=== PATIENT | female | born 1930 | race Caucasian/White ===

== ENCOUNTER 2017-02-11 14:14 | Day surgery (SDC) | payer MEDICARE, OTHER ==
[~2017-02-11 14:14] MED LIST: APRACLONIDINE HCL 50 DROP BTL RIGHTEYE PRN; PHENYLEPHRINE HCL 50 DROP BTL RIGHTEYE PRN; TROPICAMIDE 150 DROP BTL RIGHTEYE PRN
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
--- OUTSIDE RECORDS SUMMARY | 2017-02-11 14:18 | XMS REPORT | CCD ---
:1930 Author Name GARCÍA MANE Address [address] [facility] Unavailable [place], [place] [id number] Care Team Providers Name Role Phone LORELEI CROWDER Attending Physician Unavailable Vital Signs Unknown or Not Available. Allergies Allergy Code Allergy Type Reaction Status No Known Drug Allergies 0 No known drug allergies Active Procedures Unknown or Not Available. History of Immunizations Unknown or Not Available. Problems Unknown or Not Available. Results Unknown or Not Available. Active Medications Unknown or Not Available. Medications Administered During Visit Unknown or Not Available. Encounters Encounter Diagnosis Diagnosis Code Start Date CHEST PAIN NOS 95493 07/19/2015 Social History Smoking Status Code Start Date End Date Never smoker [id number] Patient Decision Aids Unknown or Not Available. Discharge Instructions You were admitted to [facility] on 07/19/2015 with a principal diagnosis of CHEST PAIN NOS. You were discharged from [facility] on 07/19/2015. Should you have any questions prior to discharge, please contact a member of your healthcare team. If you have left the hospital and have any questions, please contact your primary care physician. Chief Complaint and Reason For Visit Unknown or Not Available. Function Status Unknown or Not Available. Plan of Care Unknown or Not Available. Referral/Transition of Care Unknown or Not Available.
[2017-02-11 14:49] VITALS: BP 143/74
== END 2017-02-11 14:15 | disposition home or self-care (01) ==
LOC: AMB 14:14
PROVIDERS: ATTEND Ophthalmology
PROC: 085J3ZZ Destruction of Right Lens, Percutaneous Approach (ICD-10-PCS; principal; 2017-02-11 14:30)
DX: H26.40 Unspecified secondary cataract (principal); Z68.29 Body mass index [BMI] 29.0-29.9, adult

== ENCOUNTER 2017-04-08 12:29 | Day surgery (SDC) | payer MEDICARE, OTHER ==
[2017-04-08 12:50] VITALS: BP 148/68
== END 2017-04-08 12:30 | disposition home or self-care (01) ==
LOC: AMB 12:29
PROVIDERS: ATTEND Ophthalmology
PROC: 085J3ZZ Destruction of Right Lens, Percutaneous Approach (ICD-10-PCS; principal; 2017-04-08 11:45)
DX: H26.491 Other secondary cataract, right eye (principal); I10 Essential (primary) hypertension; E78.00 Pure hypercholesterolemia, unspecified; Z68.29 Body mass index [BMI] 29.0-29.9, adult

== ENCOUNTER 2019-05-23 09:21 | Inpatient (IN) ==
[2019-05-23] MEDS ORDERED: DILTIAZEM HCL 5 MG/ML VIAL IV ONE (09:46)
[2019-05-23] MEDS ORDERED: NORMAL SALINE 500 ML IV PRN (09:56)
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
[2019-05-23 10:08] LABS: Hematocrit 38.3 % (37.0-47.0); Hemoglobin 12.5 gm/dL (12.5-16.0); Mean Cell Volume 94.3 fl (78-100); Mean Corpuscular Hemoglobin 30.8 pg (27-31); Mean Corpuscular Hgb Conc 32.6 g/dl (32-36); Mean Platelet Volume 10.8 fl (8-12.5); Neutrophil # 12.1 K/mm3 (1.3-6.0); Neutrophil % 84.3 % (42-75.0); Platelet Count 275 K/mm3 (150-450); Red Blood Count 4.06 M/mm3 (4.2-5.4); Red Cell Distribution Width 13.4 % (11.5-14.0); White Blood Count 14.3 K/mm3 (4.0-10.5)
[2019-05-23 10:22] LABS: Urine Appearance Clear (CLEAR); Urine Bilirubin Negative (NEGATIVE); Urine Blood 250 /ul (NEGATIVE); Urine Color Yellow; Urine Ketone Large mg/dL (NEGATIVE); Urine Nitrite Negative (NEGATIVE); Urine Protein 100 mg/dL (NEGATIVE); Urine Urobilinogen Normal (NORMAL)
[2019-05-23 10:23] LABS: Urine Bacteria None Seen; Urine RBC 0-5 /hpf (0-5); Urine WBC 0-5 /hpf (0-5)
[2019-05-23 10:31] LABS: Albumin * 3.5 gm/dl (3.4-5.0); BUN/Creatinine Ratio 36.1 (9.0-21.6); Bilirubin, Total 0.7 mg/dL (0.0-1.1); Ca. Corrected For Albumin 10.1 mg/dL (8.4-10.2); Carbon Dioxide 21.1 mmol/L (24-32.6); Potassium 4.1 mmol/L (3.4-4.6); Total Protein 7.1 gm/dL (6.2-8.2)
[2019-05-23 10:32] LABS: Troponin I 0.216 ng/mL (0.00-0.10)
[2019-05-23] MEDS: NORMAL SALINE 1,000 ML IV PRN ×2 (10:32→16:59)
[2019-05-23] MEDS ORDERED: DILTIAZEM HCL 125 MG in DEXTROSE 5 % IN WATER 100 ML IV PRN ×2 (11:10)
[2019-05-23] MEDS ORDERED: NORMAL SALINE 1,000 ML IV ONE (11:10)
--- NOTE | 2019-05-23 14:17 | HP ---
Chief Complaint - Chief Complaint Date of Service: 05/23/19 Time of Service: 14:03 Chief Complaint: fall History of Present Illness: Viry Ramirez is an 88-year-old white female patient of Dr. Gato chapa who was admitted on 05/23/2019 because of a fall. The patient was found by her son on the floor this morning in the last time they talked to her was last night. 10 days prior to admission the patient had fallen down and broke her ribs and was seen in our emergency room. She had seen her neurologist who had told her that her Parkinson's disease has progressively gotten worse. In the emergency room the patient was found to be in atrial fibrillation with rapid ventricular response. Her troponin was slightly elevated at 0.2 and her CK was in the 4874, WBC of 16. Her chest x-ray showed mild cardiomegaly, her head CT scan showed no acute intracranial process, and her pelvic and hip x-ray showed osteopenia and degenerative changes no acute fractures. The family also says that her dementia is been getting worse lately. She was then admitted for further evaluation and treatment. Medical History (Updated 05/23/19 @ 14:27 by Betty Nicole MD) Urinary incontinence (Chronic) Onset Date: ~06/2008 Transient ischemic attack (Resolved) Onset Date: ~2004 Supraventricular tachycardia (Chronic) Onset Date: ~10/11/07 Rotator cuff injury (Resolved) Onset Date: ~03/03/13 Right small rotator cuff tear Osteoporosis (Chronic) Onset Date: ~2000 Lower extremity edema (Chronic) Onset Date: ~08/17/13 Probably due to inactivity and increased salt intake Trigger finger (acquired) (Resolved) Onset Date: ~12/12/12 Left small finger Hypertension (Chronic) Hyperlipidemia (Chronic) Trochanteric bursitis, unspecified hip (Resolved) Onset Date: ~11/05/12 left 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 Garcia-bilateral Anterior and Posterior Repair History of YAG laser capsulotomy of lens Onset Date: ~06/26/06 Dr. Mancini-Left History of adenoidectomy Onset Date: Unknown as child History of appendectomy Onset Date: ~1944 History of arthroscopy of right knee Onset Date: ~01/24/12 Dr. Ortiz History of cardiac catheterization Onset Date: ~06/18/13 Kathleen History of carpal tunnel release Onset Date: Unknown 07/04/07 Dr. Rhoades 12/18/2012 left carpal tunnel release and left small finger trigger finger Dr. Ortiz History of cataract surgery Onset Date: ~2002 right 10/05/2003 left 12/28/2003 History of section Onset Date: ~1961 History of cystoscopy Onset Date: ~02/07/11 Dr. Garcia History of esophagogastroduodenoscopy (EGD) Onset Date: ~05/26/13 Dr. Maria Fernanda Fox positive. Mod chronic gastric inflammation History of foot surgery Onset Date: ~02/02/16 1979-Right for spurs 02/02/16-B/L exostectomy by Dr. Dinh at [facility] History of pubovaginal sling Onset Date: ~02/07/13 Dr. Garcia History of repair of hip fracture Onset Date: ~07/24/13 left-Stindler History of tonsillectomy Onset Date: Unknown as child History of total abdominal hysterectomy and bilateral salpingo-oophorectomy Onset Date: ~1975 Fibroids Family History: Family History (Updated 07/11/18 @ 11:17 by Reny Lugo CMA) Father , age 67 Myocardial infarction CVA (cerebral vascular accident) Status post removal of lung Nervous breakdown Mother , age 86 Alzheimers disease Brother , age 75 Cancer Lung CA Kidney failure Brother Alcoholic Social History: (Last Reviewed 05/23/19 @ 13:40 by Dolly Perdomo RN) Social History: jail: No Marital status: / household members: none number of children: 2 current occupational status: retired Highest education level completed: high school graduate Service: No Tobacco: Smoking Status: Never smoker Alcohol: alcohol intake: current alcohol intake frequency: holiday/special occasion Substance Use: substance use type: does not use Dietary Habits: caffeine: Yes Review Of Systems (GEN) - Review of Systems Misc: All systems neg except as marked - unreliable due to Dementia Immunizations: IMMUNIZATION HX Immunizations Up to Date Yes History of Influenza Vaccine Yes Hx Pneumococcal Vaccination Yes Allergies/Adverse Reactions: Allergies Allergy/AdvReac Type Severity Reaction Status Date / Time No Known Allergies Allergy Verified 05/23/19 09:29 Home Medications: HOME MEDICATIONS Multivitamins [Multivitamin Sukumar] 1 cap PO DAILY #90 cap 06/10/13 [Last Taken Unknown] Acetaminophen [Tylenol] 325 - 650 mg PO Q4H PRN 06/15/13 [Last Taken Unknown] Ascorbate Calcium [Vitamin C] 500 mg PO DAILY 01/11/16 [Last Taken Unknown] Bisacodyl [Dulcolax] 5 mg PO DAILY 01/11/16 [Last Taken Unknown] Calcium Carbonate/Vitamin D3 [Calcium 500 + Vit D 200 Tablet] 1 ea PO DAILY 01/11/16 [Last Taken Unknown] Ferrous Sulfate [Iron] 325 mg PO BID 01/11/16 [Last Taken Unknown] Nitroglycerin 0.4 mg SL Q5M PRN 01/11/16 [Last Taken Unknown] meloxicam 15 mg tablet 15 mg PO DAILY 07/11/18 [Last Taken Unknown] oxybutynin chloride 5 mg tablet 5 mg PO HS #30 tab 01/05/19 [Last Taken Unknown] enalapril maleate 10 mg tablet 10 mg PO BID #60 tab 01/06/19 [Last Taken Unknown] metoprolol tartrate 100 mg tablet 100 mg PO DAILY #30 tab 01/06/19 [Last Taken Unknown] simvastatin 40 mg tablet 40 mg PO DAILY #30 tab 01/06/19 [Last Taken Unknown] oxyCODONE HCL/ACETAMINOPHEN [Oxycodone-Acetaminophen 5-325] 1 ea PO QID PRN #20 tab 05/13/19 [Last Taken Unknown] Exam - Exam Vital Signs: Vital Signs - Last Taken Temp 36.7 C 05/23/19 13:43 Pulse 133 H 05/23/19 14:02 Resp 20 05/23/19 13:43 BP 128/87 05/23/19 13:43 Pulse Ox 98 05/23/19 13:43 Constitutional: Present: Alert - AAo x 2, Cooperative, Elderly ENT Exam: Present: hearing grossly normal Eye Exam: bilateral eye: normal inspection, PERRL, EOMI Neck: Present: supple. Absent: lymphadenopathy (R), lymphadenopathy (L) Respiratory: Present: normal breath sounds, No rales, No wheezing Cardiovascular/Chest: Present: no JVD, tachycardia, irregularly irregular Abdomen: Present: Normal bowel sounds, soft, nontender, nondistended Extremity: Present: no pedal edema, no calf tenderness Diagnostic Studies: Abnormal Lab Results 05/23/19 05/23/19 05/23/19 Range/Units 09:52 10:00 10:00 WBC 14.3 H (4.0-10.5) K/mm3 RBC 4.06 L (4.2-5.4) M/mm3 Immature Gran % (Auto) 0.60 H (0.001-0.429) % Immature Gran # (Auto) 0.08 H (0.000-0.0310) K/mm3 Neutrophils % 84.3 H (42-75.0) % Lymphocytes % 5.0 L (20-51) % Monocytes % 9.9 H (0.0-9) % Neutrophils # 12.1 H (1.3-6.0) K/mm3 Lymphocytes # 0.71 L (1.5-3.5) k/mm3 Monocytes # 1.4 H (0.0-1.0) k/mm3 Carbon Dioxide 21.1 L (24-32.6) mmol/L Anion Gap 20.0 H (6.8-13.8) mmol/L BUN 43 H (3-23) mg/dL Est GFR (Non-Af Amer) 45 L (60-130) mL/min BUN/Creatinine Ratio 36.1 H (9.0-21.6) Random Glucose 126 H (70-110) mg/dL AST 190 H (0-48) U/L ALT 84 H (19-67) U/L Creatine Kinase 4874 H (0-259) U/L Troponin I 0.216 H* (0.00-0.10) ng/mL Urine Protein 100 H (NEGATIVE) mg/dL Urine Blood 250 H (NEGATIVE) /ul Prot Sulfosalicylic Acd 3+ H (0) mg/dL Laboratory Results WBC 14.3 K/mm3 (4.0-10.5) H 05/23/19 10:00 RBC 4.06 M/mm3 (4.2-5.4) L 05/23/19 10:00 Hgb 12.5 gm/dL (12.5-16.0) 05/23/19 10:00 Hct 38.3 % (37.0-47.0) 05/23/19 10:00 MCV 94.3 fl (78-100) 05/23/19 10:00 MCH 30.8 pg (27-31) 05/23/19 10:00 MCHC 32.6 g/dl (32-36) 05/23/19 10:00 RDW 13.4 % (11.5-14.0) 05/23/19 10:00 Plt Count 275 K/mm3 (150-450) 05/23/19 10:00 MPV 10.8 fl (8-12.5) 05/23/19 10:00 Immature Gran % (Auto) 0.60 % (0.001-0.429) H 05/23/19 10:00 Immature Gran # (Auto) 0.08 K/mm3 (0.000-0.0310) H 05/23/19 10:00 84.3 % (42-75.0) H 05/23/19 10:00 5.0 % (20-51) L 05/23/19 10:00 9.9 % (0.0-9) H 05/23/19 10:00 0.1 % (0.0-3.0) 05/23/19 10:00 0.1 % (0.0-1.0) 05/23/19 10:00 Nucleated RBC % 0.0 k/mm3 (0-1) 05/23/19 10:00 12.1 K/mm3 (1.3-6.0) H 05/23/19 10:00 0.71 k/mm3 (1.5-3.5) L 05/23/19 10:00 1.4 k/mm3 (0.0-1.0) H 05/23/19 10:00 0.0 k/mm3 (0.0-0.7) 05/23/19 10:00 Absolute Basophils 0.0 k/mm3 (0.0-0.1) 05/23/19 10:00 Sodium 140 mmol/L (132-142) 05/23/19 10:00 140 mmol/L (130-142) 05/23/19 10:00 Potassium 4.1 mmol/L (3.4-4.6) 05/23/19 10:00 Chloride 103 mmol/L (97-106) 05/23/19 10:00 Carbon Dioxide 21.1 mmol/L (24-32.6) L 05/23/19 10:00 20.0 mmol/L (6.8-13.8) H 05/23/19 10:00 BUN 43 mg/dL (3-23) H 05/23/19 10:00 1.19 mg/dL (0.4-1.4) 05/23/19 10:00 Est GFR (Non-Af Amer) 45 mL/min (60-130) L 05/23/19 10:00 36.1 (9.0-21.6) H 05/23/19 10:00 126 mg/dL (70-110) H 05/23/19 10:00 Calcium 10.0 mg/dL (7.9-10.9) 05/23/19 10:00 Calcium Adj for Albumin 10.1 mg/dL (8.4-10.2) 05/23/19 10:00 0.7 mg/dL (0.0-1.1) 05/23/19 10:00 AST 190 U/L (0-48) H 05/23/19 10:00 ALT 84 U/L (19-67) H 05/23/19 10:00 77 U/L (50-170) 05/23/19 10:00 4874 U/L (0-259) H 05/23/19 10:00 0.216 ng/mL (0.00-0.10) H* 05/23/19 10:00 7.1 gm/dL (6.2-8.2) 05/23/19 10:00 3.5 gm/dl (3.4-5.0) 05/23/19 10:00 Yellow 05/23/19 09:52 Clear (CLEAR) 05/23/19 09:52 6.0 pH (5.0-7.0) 05/23/19 09:52 Ur Specific [place] 1.030 SP.GR. (1.005-1.010) 05/23/19 09:52 100 mg/dL (NEGATIVE) H 05/23/19 09:52 Negative mg/dL (NEGATIVE) 05/23/19 09:52 Large mg/dL (NEGATIVE) 05/23/19 09:52 250 /ul (NEGATIVE) H 05/23/19 09:52 Negative (NEGATIVE) 05/23/19 09:52 Negative mg/dl (NEGATIVE) 05/23/19 09:52 Prot Sulfosalicylic Acd 3+ mg/dL (0) H 05/23/19 09:52 Normal EU/dl (NORMAL) 05/23/19 09:52 Ur Leukocyte Esterase Negative /ul (NEGATIVE) 05/23/19 09:52 0-5 /hpf (0-5) 05/23/19 09:52 0-5 /hpf (0-5) 05/23/19 09:52 Ur Epithelial Cells 0-5 /hpf (0-5) 05/23/19 09:52 None seen (NONE) 05/23/19 09:52 No culture indicated 05/23/19 09:52 Assessment/Plan - Narrative Narrative: The patient got 50 mg of IV bolus Cardizem. The drip was not started as her blood pressure was in the low 90s after the bolus. We will likely start her on loading dose of IV digoxin if her BP is still n the low side otherwise will starte her on Cardizem drip. . Discussion about recent control and rate control were done with the family. They just want rate control and they do not want anticoagulation. She is at an increased risk for bleeding from frequent falls. The grandson is in the medical field and just wants to continue with her aspirin and no therapeutic Lovenox. I did tell him that I will start him on DVT p rophylaxis dose of Lovenox. We will continue patient on on IV fluids for her rhabdomyolysis. Will refer to PT OT for evaluation and treatment. They do not want the patient to be transferred in case her troponin goes up any higher. They just want conservative measures. - Assessment/Plan (1) Multiple falls Assessment: due to progression of Parkinson disease Problem: Acute (2) Atrial fibrillation Assessment: new onset. had h/p SVT in the past Problem: Acute (3) Elevated troponin Assessment: likely due to increase demand ischemia from AFib with RVR Problem: Acute (4) Rib fractures Problem: Acute Qualifiers: Encounter type: initial encounter Rib fracture type: multiple ribs Fracture type: closed Laterality: left Qualified Code(s): S22.42XA - Multiple fractures of ribs, left side, initial encounter for closed fracture (5) Elevated CK Assessment: due to fall/rhabdo Problem: Acute (6) Rhabdomyolysis Assessment: due to fall Problem: Acute (7) Hypertension Problem: Chronic Qualifiers: Hypertension type: essential hypertension Qualified Code(s): I10 - Essential (primary) hypertension
[2019-05-23] MEDS ORDERED: NITROGLYCERIN 0.4 MG/TAB BTL SL PRN (14:30)
[2019-05-23] MEDS ORDERED: DIGOXIN 0.25 MG/ML AMPUL IV ONE (15:09)
[2019-05-23] MEDS: ASPIRIN 81 MG TAB.CHEW PO SCH ×2 (15:43→15:46)
[2019-05-23] MEDS: ENOXAPARIN SODIUM 40 MG/0.4 ML SYRG SC SCH (17:35)
[2019-05-23] MEDS: DIGOXIN 0.25 MG/ML AMPUL IV SCH (22:01)
[2019-05-23] MEDS: OXYBUTYNIN CHLORIDE 5 MG TABLET PO SCH (22:06)
[2019-05-23] MEDS: FERROUS SULFATE 325 MG TABLET PO SCH (22:06)
[2019-05-23] MEDS ORDERED: METOPROLOL TARTRATE 1 MG/ML AMPUL IV ONE (22:17)
[2019-05-24] MEDS: NYSTATIN 15 APPL BTL TP SCH ×3 (00:17→23:43)
[2019-05-24] MEDS: NORMAL SALINE 1,000 ML IV PRN ×3 (01:08→18:32)
[2019-05-24] MEDS: DIGOXIN 0.25 MG/ML AMPUL IV SCH ×3 (02:28→14:01)
[2019-05-24 06:15] LABS: Hematocrit 31.2 % (37.0-47.0); Hemoglobin 10.2 gm/dL (12.5-16.0); Mean Cell Volume 95.1 fl (78-100); Mean Corpuscular Hemoglobin 31.1 pg (27-31); Mean Corpuscular Hgb Conc 32.7 g/dl (32-36); Mean Platelet Volume 11.1 fl (8-12.5); Neutrophil # 7.4 K/mm3 (1.3-6.0); Neutrophil % 75.6 % (42-75.0); Platelet Count 234 K/mm3 (150-450); Red Blood Count 3.28 M/mm3 (4.2-5.4); Red Cell Distribution Width 13.5 % (11.5-14.0); White Blood Count 9.8 K/mm3 (4.0-10.5)
[2019-05-24 06:47] LABS: Anion Gap 16.1 mmol/L (6.8-13.8); BUN/Creatinine Ratio 38.3 (9.0-21.6); Calcium * 8.7 mg/dL (7.9-10.9); Carbon Dioxide 21.4 mmol/L (24-32.6); Estimated Creat Clear 32.7; Potassium 3.5 mmol/L (3.4-4.6)
[2019-05-24] MEDS: ASPIRIN 81 MG TAB.CHEW PO SCH (09:14)
[2019-05-24] MEDS: SIMVASTATIN 40 MG TABLET PO SCH (09:14)
[2019-05-24] MEDS: MULTIVITAMINS 1 CAP CAPSULE PO SCH (09:15)
[2019-05-24] MEDS: CALCIUM CARBONATE/VITAMIN D3 1 TAB TABLET PO SCH (09:16)
[2019-05-24] MEDS: FERROUS SULFATE 325 MG TABLET PO SCH ×2 (09:17→23:43)
[2019-05-24] MEDS: ASCORBIC ACID 500 MG TABLET PO SCH (09:17)
[2019-05-24] MEDS: BISACODYL 5 MG TABLET.DR PO SCH (09:18)
[2019-05-24] MEDS: oxyCODONE HCL/ACETAMINOPHEN 1 TAB TABLET PO PRN (11:05)
--- NOTE | 2019-05-24 11:19 | PN ---
Subjective - Date and Time Seen Date: 05/24/19 Time: 11:11 Subjective Narrative: The patient is feeling better. Her heart rate has been controlled in the 70s to 80s and her blood pressure is back up into the 130s. We will get an echocardiogram in the morning and add TSH/CK to her blood work this morning. Objective - Review of Systems Misc: All systems neg except as marked - Unreliable due to patient's baseline beginning dementia. - Vitals Vitals: Last Vital Signs Temp 36.8 C 05/24/19 10:00 Pulse 89 05/24/19 10:00 Resp 20 05/24/19 10:00 BP 149/64 05/24/19 10:00 Pulse Ox 96 05/24/19 10:00 - Abnormal Lab Findings Abnormal Lab Findings: Abnormal Lab Results 05/23/19 05/24/19 05/24/19 Range/Units 14:00 06:12 06:12 RBC 3.28 L (4.2-5.4) M/mm3 Hgb 10.2 L (12.5-16.0) gm/dL Hct 31.2 L (37.0-47.0) % MCH 31.1 H (27-31) pg Neutrophils % 75.6 H (42-75.0) % Lymphocytes % 12.1 L (20-51) % Monocytes % 11.8 H (0.0-9) % Neutrophils # 7.4 H (1.3-6.0) K/mm3 Lymphocytes # 1.19 L (1.5-3.5) k/mm3 Monocytes # 1.2 H (0.0-1.0) k/mm3 Sodium 144 H (132-142) mmol/L Plasma Sodium 144 H (130-142) mmol/L Chloride 110 H (97-106) mmol/L Carbon Dioxide 21.4 L (24-32.6) mmol/L Anion Gap 16.1 H (6.8-13.8) mmol/L BUN 36 H (3-23) mg/dL BUN/Creatinine Ratio 38.3 H (9.0-21.6) Troponin I 0.228 H* (0.00-0.10) ng/mL - Exam Constitutional: Present: Alert - AAO x2, Cooperative, Elderly ENT Exam: Present: hearing grossly normal Neck: Present: supple. Absent: lymphadenopathy (R), lymphadenopathy (L) Respiratory: Present: normal breath sounds, No rales Cardiovascular/Chest: Present: no JVD, systolic murmur, irregularly irregular Abdomen: Present: Normal bowel sounds, soft, nontender, nondistended Extremity: Present: no pedal edema, no calf tenderness Assessment/Plan Plan Narrative: We will continue with the present management. Will likely restart her back on metoprolol tartrate twice a day for rate control. If patient needs digoxin will likely give it to her on on MWF basis. We will get an echocardiogram in the morning for A. fib and will add TSH and do a follow-up CK from her blood drawn this morning. - Problems/Diagnosis (1) Multiple falls Problem: Acute (2) Atrial fibrillation Problem: Acute Narrative: rate controlled. not on anticoagulation per discussion with family-dementia with increase fallrisks form her Parkinson. she is going to recieve her last dose of IV loadng digoxin dose at 1330. Will likely start her on Metorpolol tartrate BID tonight or tomorrow. (3) Elevated troponin Problem: Acute Narrative: likely due increased demand iscehmia. will get Echo in a.m. (4) Rib fractures Problem: Acute Qualifiers: Encounter type: initial encounter Rib fracture type: multiple ribs Fracture type: closed Laterality: left Qualified Code(s): S22.42XA - Multiple fractures of ribs, left side, initial encounter for closed fracture (5) Elevated CK Problem: Acute Narrative: will follow up CK (6) Rhabdomyolysis Problem: Acute Narrative: will follow up CK. ADDENDUM CK is down to 1500+ from 4500+. continue with IVF. (7) Hypertension Problem: Chronic Qualifiers: Hypertension type: essential hypertension Qualified Code(s): I10 - Essential (primary) hypertension
[2019-05-24] MEDS: ENOXAPARIN SODIUM 40 MG/0.4 ML SYRG SC SCH (18:28)
[2019-05-24] MEDS: OXYBUTYNIN CHLORIDE 5 MG TABLET PO SCH (23:43)
[2019-05-25] MEDS: NORMAL SALINE 1,000 ML IV PRN ×2 (02:44→17:59)
[2019-05-25] MEDS: ASCORBIC ACID 500 MG TABLET PO SCH (08:53)
[2019-05-25] MEDS: FERROUS SULFATE 325 MG TABLET PO SCH ×2 (08:53→21:55)
[2019-05-25] MEDS: BISACODYL 5 MG TABLET.DR PO SCH (08:53)
[2019-05-25] MEDS: ASPIRIN 81 MG TAB.CHEW PO SCH (08:53)
[2019-05-25] MEDS: CALCIUM CARBONATE/VITAMIN D3 1 TAB TABLET PO SCH (08:53)
[2019-05-25 08:54] LABS: Anion Gap 12.2 mmol/L (6.8-13.8); BUN/Creatinine Ratio 28.1 (9.0-21.6); Calcium * 8.5 mg/dL (7.9-10.9); Estimated Creat Clear 34.6; Potassium 3.2 mmol/L (3.4-4.6)
[2019-05-25] MEDS: MULTIVITAMINS 1 CAP CAPSULE PO SCH (08:54)
[2019-05-25] MEDS: SIMVASTATIN 40 MG TABLET PO SCH (08:54)
[2019-05-25] MEDS: METOPROLOL TARTRATE 50 MG TABLET PO SCH ×2 (08:54→21:55)
[2019-05-25] MEDS: NYSTATIN 15 APPL BTL TP SCH ×2 (08:54→21:55)
[2019-05-25] MEDS ORDERED: POTASSIUM CHLORIDE 10 MEQ TABLET.SA PO ONE (09:59)
--- NOTE | 2019-05-25 10:42 | PN ---
Progess Note - Interim Date: 05/25/19 Time: 10:40 Narrative: 05/25/19 10:40 Remains rate controlled. Will await Echo. may need NH due to her increased fall risk.
--- NOTE | 2019-05-25 12:19 | PN ---
Subjective - Date and Time Seen Date: 05/25/19 Time: 12:14 Subjective Narrative: Patient seen this morning. She says she is feeling better. Her HR has been controlled . Objective - Review of Systems Misc: All systems neg except as marked - unreliable due to mental status - Vitals Vitals: Last Vital Signs Temp 36.5 C 05/25/19 09:00 Pulse 67 05/25/19 10:10 Resp 20 05/25/19 09:00 BP 153/84 H 05/25/19 09:00 Pulse Ox 95 05/25/19 09:00 - Abnormal Lab Findings Abnormal Lab Findings: Abnormal Lab Results 05/25/19 Range/Units 08:16 Potassium 3.2 L (3.4-4.6) mmol/L BUN 25 H (3-23) mg/dL BUN/Creatinine Ratio 28.1 H (9.0-21.6) Random Glucose 128 H D (70-110) mg/dL Creatine Kinase 850 H (0-259) U/L - Exam Constitutional: Present: Alert - AAO x 1, Elderly ENT Exam: Present: hearing grossly normal Neck: Present: supple. Absent: lymphadenopathy (R), lymphadenopathy (L) Respiratory: Present: decreased breath sounds, No rales, No wheezing Cardiovascular/Chest: Present: no JVD, systolic murmur, irregularly irregular Abdomen: Present: Normal bowel sounds, soft, nontender, nondistended Extremity: Present: no calf tenderness, pedal edema Assessment/Plan Plan Narrative: We will start her on metoprolol tartate 50 mg PO BID for rate control. will defer from starting her on oral digoxin if this works. will defer also amiodarone as they just want rate control. she is for Echo today. she will need NH or assisted living due to her frequent falls. Her Ck is sill trending down. - Problems/Diagnosis (1) Multiple falls Problem: Acute (2) Atrial fibrillation Problem: Acute (3) Elevated troponin Problem: Acute (4) Rib fractures Problem: Acute Qualifiers: Encounter type: initial encounter Rib fracture type: multiple ribs Fracture type: closed Laterality: left Qualified Code(s): S22.42XA - Multiple fractures of ribs, left side, initial encounter for closed fracture (5) Elevated CK Problem: Acute (6) Rhabdomyolysis Problem: Acute (7) Hypertension Problem: Chronic Qualifiers: Hypertension type: essential hypertension Qualified Code(s): I10 - Essential (primary) hypertension
[2019-05-25] MEDS: ENOXAPARIN SODIUM 40 MG/0.4 ML SYRG SC SCH (17:12)
[2019-05-25] MEDS: OXYBUTYNIN CHLORIDE 5 MG TABLET PO SCH (21:55)
[2019-05-25] MEDS: ACETAMINOPHEN 325 MG TABLET PO PRN (21:55)
[2019-05-26 05:43] LABS: Hemoglobin 9.9 gm/dL (12.5-16.0); Mean Cell Volume 96.3 fl (78-100); Mean Corpuscular Hemoglobin 30.7 pg (27-31); Mean Corpuscular Hgb Conc 31.9 g/dl (32-36); Mean Platelet Volume 10.5 fl (8-12.5); Neutrophil % 63.1 % (42-75.0); Platelet Count 212 K/mm3 (150-450); Red Blood Count 3.22 M/mm3 (4.2-5.4); Red Cell Distribution Width 13.4 % (11.5-14.0); White Blood Count 7.9 K/mm3 (4.0-10.5)
[2019-05-26 05:56] LABS: Albumin * 2.2 gm/dl (3.4-5.0); Anion Gap 13.3 mmol/L (6.8-13.8); BUN/Creatinine Ratio 32.9 (9.0-21.6); Bilirubin, Total 0.4 mg/dL (0.0-1.1); Ca. Corrected For Albumin 9.6 mg/dL (8.4-10.2); Calcium * 8.5 mg/dL (7.9-10.9); Carbon Dioxide 24.3 mmol/L (24-32.6); Potassium 3.6 mmol/L (3.4-4.6); Total Protein 5.3 gm/dL (6.2-8.2)
[2019-05-26] MEDS: ACETAMINOPHEN 325 MG TABLET PO PRN ×2 (07:43→20:17)
--- NOTE | 2019-05-26 08:18 | PN ---
Progess Note - Interim Date: 05/26/19 Time: 08:16 Narrative: 05/26/19 08:16 Patient is AAo x 1. Cooperative this morning and pleasant. Had some behavioral changes last night not being cooperative, refusing VS. possible disharge to NH today, dementia unit. will discuss rsult of Echo with family.
[2019-05-26] MEDS: ASPIRIN 81 MG TAB.CHEW PO SCH (08:51)
[2019-05-26] MEDS: CALCIUM CARBONATE/VITAMIN D3 1 TAB TABLET PO SCH (08:51)
[2019-05-26] MEDS: BISACODYL 5 MG TABLET.DR PO SCH (08:51)
[2019-05-26] MEDS: FERROUS SULFATE 325 MG TABLET PO SCH ×2 (08:52→20:17)
[2019-05-26] MEDS: MULTIVITAMINS 1 CAP CAPSULE PO SCH (08:52)
[2019-05-26] MEDS: METOPROLOL TARTRATE 50 MG TABLET PO SCH ×2 (08:52→20:18)
[2019-05-26] MEDS: SIMVASTATIN 40 MG TABLET PO SCH (08:52)
[2019-05-26] MEDS: NYSTATIN 15 APPL BTL TP SCH ×2 (08:52→20:19)
[2019-05-26] MEDS: ASCORBIC ACID 500 MG TABLET PO SCH (08:52)
--- NOTE | 2019-05-26 12:00 | ECHO ---
This report is available in the EMR
--- NOTE | 2019-05-26 15:01 | PN ---
Subjective - Date and Time Seen Date: 05/26/19 Time: 15:01 Subjective Narrative: Patient is AAo x 1. Cooperative this morning and pleasant. Had some behavioral changes last night not being cooperative, refusing VS. possible disharge to [place] , dementia unit. Discussed result of Echo with family- slightly D shaped septum but RVSP is only 35. P.E. is equivocal . discussed if they want CTA. if with P.E. treatment is oral anticogulant. Daughter says she will discuss with her son who is in the medical field. Objective - Review of Systems Misc: All systems neg except as marked - unrelaibale due to confusion - Vitals Vitals: Last Vital Signs Temp 36.9 C 05/26/19 10:00 Pulse 63 05/26/19 14:25 Resp 20 05/26/19 10:00 BP 124/64 05/26/19 10:00 Pulse Ox 98 05/26/19 10:00 - Abnormal Lab Findings Abnormal Lab Findings: Abnormal Lab Results 05/26/19 05/26/19 05/26/19 Range/Units 05:37 05:37 05:37 RBC 3.22 L (4.2-5.4) M/mm3 Hgb 9.9 L (12.5-16.0) gm/dL Hct 31.0 L (37.0-47.0) % MCHC 31.9 L (32-36) g/dl Immature Gran % (Auto) 0.80 H (0.001-0.429) % Immature Gran # (Auto) 0.06 H (0.000-0.0310) K/mm3 Monocytes % 11.3 H (0.0-9) % Chloride 108 H (97-106) mmol/L BUN 28 H (3-23) mg/dL BUN/Creatinine Ratio 32.9 H (9.0-21.6) Creatine Kinase 434 H (0-259) U/L Total Protein 5.3 L (6.2-8.2) gm/dL Albumin 2.2 L (3.4-5.0) gm/dl - Exam Constitutional: Present: Alert - AAO x 1, Elderly ENT Exam: Present: hearing grossly normal Neck: Present: supple. Absent: lymphadenopathy (R), lymphadenopathy (L) Respiratory: Present: decreased breath sounds, No rales, No wheezing Cardiovascular/Chest: Present: no JVD, no murmur, irregularly irregular Abdomen: Present: Normal bowel sounds, soft, nontender, nondistended Extremity: Present: no pedal edema, no calf tenderness Assessment/Plan Plan Narrative: We will continue with current medications and present management . Awaiting NH or assisted living placement. will await their decision on CTA. - Problems/Diagnosis (1) Multiple falls Problem: Acute (2) Atrial fibrillation Problem: Acute (3) Elevated troponin Problem: Acute (4) Rib fractures Problem: Acute Qualifiers: Encounter type: initial encounter Rib fracture type: multiple ribs Fracture type: closed Laterality: left Qualified Code(s): S22.42XA - Multiple fractures of ribs, left side, initial encounter for closed fracture (5) Elevated CK Problem: Acute (6) Rhabdomyolysis Problem: Acute (7) Hypertension Problem: Chronic Qualifiers: Hypertension type: essential hypertension Qualified Code(s): I10 - Essential (primary) hypertension
[2019-05-26] MEDS ORDERED: LORazepam 0.5 MG TABLET PO PRN (15:14)
[2019-05-26] MEDS: ENOXAPARIN SODIUM 40 MG/0.4 ML SYRG SC SCH (17:00)
[2019-05-26] MEDS: OXYBUTYNIN CHLORIDE 5 MG TABLET PO SCH (20:17)
[2019-05-27] MEDS: oxyCODONE HCL/ACETAMINOPHEN 1 TAB TABLET PO PRN ×2 (01:35→08:11)
[2019-05-27] MEDS: METOPROLOL TARTRATE 50 MG TABLET PO SCH ×2 (08:02→20:39)
[2019-05-27] MEDS: CALCIUM CARBONATE/VITAMIN D3 1 TAB TABLET PO SCH (08:02)
[2019-05-27] MEDS: FERROUS SULFATE 325 MG TABLET PO SCH ×2 (08:02→20:40)
[2019-05-27] MEDS: ASPIRIN 81 MG TAB.CHEW PO SCH (08:02)
[2019-05-27] MEDS: SIMVASTATIN 40 MG TABLET PO SCH (08:03)
[2019-05-27] MEDS: MULTIVITAMINS 1 CAP CAPSULE PO SCH (08:03)
[2019-05-27] MEDS: BISACODYL 5 MG TABLET.DR PO SCH (08:03)
[2019-05-27] MEDS: ASCORBIC ACID 500 MG TABLET PO SCH (08:03)
[2019-05-27] MEDS: NYSTATIN 15 APPL BTL TP SCH ×2 (08:06→20:41)
--- NOTE | 2019-05-27 10:00 | PN ---
Progess Note - Interim Date: 05/27/19 Time: 09:59 Narrative: 05/27/19 09:59 AAO x1. has been having intermittent BP increase with generalized anxiety . Lorazepam 0.5 mg PO TID PRn for anxiety started yesterday afternoon. Awaitng NH placement.
--- NOTE | 2019-05-27 15:21 | PN ---
Subjective - Date and Time Seen Date: 05/27/19 Time: 15:18 Subjective Narrative: AAO x1. has been having intermittent BP increase with generalized anxiety . Lorazepam 0.5 mg PO TID PRn for anxiety started yesterday afternoon. Awaitng NH placement Objective - Review of Systems Misc: All systems neg except as marked - Unreliable due to her mental status state - Vitals Vitals: Last Vital Signs Temp 36.6 C 05/27/19 14:43 Pulse 74 05/27/19 14:43 Resp 16 05/27/19 14:43 BP 148/73 05/27/19 14:43 Pulse Ox 97 05/27/19 14:43 - Exam Constitutional: Present: Alert - AAO x 1, Elderly ENT Exam: Present: hearing grossly normal Neck: Present: supple. Absent: lymphadenopathy (R), lymphadenopathy (L) Respiratory: Present: decreased breath sounds, No rales, No wheezing Cardiovascular/Chest: Present: no JVD, systolic murmur, irregularly irregular Abdomen: Present: Normal bowel sounds, nontender, nondistended Extremity: Present: no pedal edema, no calf tenderness Assessment/Plan Plan Narrative: We will continue with present management and current medications. She will like have placement by tomorrow. - Problems/Diagnosis (1) Multiple falls Problem: Acute (2) Atrial fibrillation Problem: Acute (3) Elevated troponin Problem: Acute (4) Rib fractures Problem: Acute Qualifiers: Encounter type: initial encounter Rib fracture type: multiple ribs Fracture type: closed Laterality: left Qualified Code(s): S22.42XA - Multiple fractures of ribs, left side, initial encounter for closed fracture (5) Elevated CK Problem: Acute (6) Rhabdomyolysis Problem: Acute (7) Hypertension Problem: Chronic Qualifiers: Hypertension type: essential hypertension Qualified Code(s): I10 - Essential (primary) hypertension
[2019-05-27] MEDS: ENOXAPARIN SODIUM 40 MG/0.4 ML SYRG SC SCH (17:00)
[2019-05-27] MEDS: OXYBUTYNIN CHLORIDE 5 MG TABLET PO SCH (20:41)
[2019-05-28] MEDS: oxyCODONE HCL/ACETAMINOPHEN 1 TAB TABLET PO PRN ×2 (00:18→08:09)
[2019-05-28] MEDS: MULTIVITAMINS 1 CAP CAPSULE PO SCH (08:10)
[2019-05-28] MEDS: BISACODYL 5 MG TABLET.DR PO SCH (08:10)
[2019-05-28] MEDS: ASPIRIN 81 MG TAB.CHEW PO SCH (08:10)
[2019-05-28] MEDS: ASCORBIC ACID 500 MG TABLET PO SCH (08:10)
[2019-05-28] MEDS: CALCIUM CARBONATE/VITAMIN D3 1 TAB TABLET PO SCH (08:10)
[2019-05-28] MEDS: METOPROLOL TARTRATE 50 MG TABLET PO SCH (08:10)
[2019-05-28] MEDS: NYSTATIN 15 APPL BTL TP SCH ×2 (08:10→21:27)
[2019-05-28] MEDS: FERROUS SULFATE 325 MG TABLET PO SCH ×2 (08:10→21:28)
[2019-05-28] MEDS: SIMVASTATIN 40 MG TABLET PO SCH (08:10)
--- NOTE | 2019-05-28 08:43 | DS ---
(1) Multiple falls Problem: Acute (2) Atrial fibrillation Problem: Acute Qualifiers: Atrial fibrillation type: persistent Qualified Code(s): I48.1 - Persistent atrial fibrillation (3) Elevated troponin Problem: Acute (4) Rib fractures Problem: Acute Qualifiers: Encounter type: initial encounter Rib fracture type: multiple ribs Fracture type: closed Laterality: left Qualified Code(s): S22.42XA - Multiple fractures of ribs, left side, initial encounter for closed fracture (5) Elevated CK Problem: Resolved (6) Rhabdomyolysis Problem: Resolved (7) Hypertension Problem: Chronic Qualifiers: Hypertension type: essential hypertension Qualified Code(s): I10 - Essential (primary) hypertension Description of Stay: Viry Ramirez is an 88-year-old white female patient of Dr. Ana Hoskins who was admitted on 05/23/2019 because of a fall. The patient was found by her son on the floor this morning in the last time they talked to her was last night. 10 days prior to admission the patient had fallen down and broke her ribs and was seen in our emergency room. She had seen her neurologist who had told her that her Parkinson's disease has progressively gotten worse. In the emergency room the patient was found to be in atrial fibrillation with rapid ventricular response. Her troponin was slightly elevated at 0.2 and her CK was in the 4874, WBC of 16. Her chest x-ray showed mild cardiomegaly, her head CT scan showed no acute intracranial process, and her pelvic and hip x-ray showed osteopenia and degenerative changes no acute fractures. The family also says that her dementia is been getting worse lately. She was then admitted for further evaluation and treatment. She recieved IV digoxin to slow her HR as her BP could not tolerate a cardizem drip. Her rate controlled and she was put back on her metorpolol. Her Ck trended rico. Her Echo showed showed mil concentric left ventricular hypertropht, normalEF, positive diastolic dyfunction, mils AR/mild , slightl D shaped septum but RVSP of only 35 mm Hg. Discussion was done with family- they did not want rhythm control only rate control, they did not want aggressive with her elevated troponin which like is due to increase demand ischemia, they did not want anticoagulation just ASA due to her increased risk for falls. They also did not want a CTA following P.E. protocol for her AFib and slightly D shaped septum. She is stable to be discharged to the [place]. ADDENDUM: Her HR went down to the 30's after receiving her Metoprolol. She started to go up with activity. Repeat labs showed mild hypokalemia and elevated BNP. Klorcon and Lasix x 1 were given. Her dioxin level was 0.5. Will defer her discharge to day and keep her on telemetry for now. Will likely restart her metoprolol at 12.5 or 25 mg PO BID tomorrow. THIS WILL SERVE MY PROGRESS NOTES FOR TODAY. Procedures Performed: none Results and Findings: Lab Pending Results 05/23/19 09:52: Urine Color Yellow, Urine Appearance Clear, Urine pH 6.0, Ur Specific [place] 1.030, Urine Protein 100 H, Urine Glucose (UA) Negative, Urine Ketones Large, Urine Blood 250 H, Urine Nitrate Negative, Urine Bilirubin Negative, Prot Sulfosalicylic Acd 3+ H, Urine Urobilinogen Normal, Ur Leukocyte Esterase Negative, Urine RBC 0-5, Urine WBC 0-5, Ur Epithelial Cells 0-5, Urine Bacteria None seen, Urine Culture Comments No culture indicated 05/23/19 10:00: WBC 14.3 H, RBC 4.06 L, Hgb 12.5, Hct 38.3, MCV 94.3, MCH 30.8, MCHC 32.6, RDW 13.4, Plt Count 275, MPV 10.8, Immature Gran % (Auto) 0.60 H, Immature Gran # (Auto) 0.08 H, Neutrophils % 84.3 H, Lymphocytes % 5.0 L, Monocytes % 9.9 H, Eosinophils % 0.1, Basophils % 0.1, Nucleated RBC % 0.0, Neutrophils # 12.1 H, Lymphocytes # 0.71 L, Monocytes # 1.4 H, Eosinophils # 0.0, Absolute Basophils 0.0 05/23/19 10:00: Sodium 140, Plasma Sodium 140, Potassium 4.1, Chloride 103, Carbon Dioxide 21.1 L, Anion Gap 20.0 H, BUN 43 H, Creatinine 1.19, Est GFR (Non-Af Amer) 45 L, BUN/Creatinine Ratio 36.1 H, Random Glucose 126 H, Calcium 10.0, Calcium Adj for Albumin 10.1, Total Bilirubin 0.7, AST 190 H, ALT 84 H, Alkaline Phosphatase 77, Creatine Kinase 4874 H, Troponin I 0.216 H*, Total Protein 7.1, Albumin 3.5 05/23/19 14:00: Troponin I 0.228 H* 05/24/19 06:00: TSH 0.762 05/24/19 06:00: Creatine Kinase 1717 H 05/24/19 06:12: WBC 9.8 D, RBC 3.28 L, Hgb 10.2 L, Hct 31.2 L, MCV 95.1, MCH 31.1 H, MCHC 32.7, RDW 13.5, Plt Count 234, MPV 11.1, Immature Gran % (Auto) 0.30, Immature Gran # (Auto) 0.03, Neutrophils % 75.6 H, Lymphocytes % 12.1 L, Monocytes % 11.8 H, Eosinophils % 0.0, Basophils % 0.2, Nucleated RBC % 0.0, Neutrophils # 7.4 H, Lymphocytes # 1.19 L, Monocytes # 1.2 H, Eosinophils # 0.0, Absolute Basophils 0.0 05/24/19 06:12: Sodium 144 H, Plasma Sodium 144 H, Potassium 3.5, Chloride 110 H, Carbon Dioxide 21.4 L, Anion Gap 16.1 H, BUN 36 H, Creatinine 0.94, Est GFR (Non-Af Amer) 60 D, BUN/Creatinine Ratio 38.3 H, Random Glucose 94, Calcium 8.7 05/25/19 08:16: Sodium 140, Plasma Sodium 140, Potassium 3.2 L, Chloride 106, Carbon Dioxide 25.0, Anion Gap 12.2, BUN 25 H, Creatinine 0.89, Est GFR (Non-Af Amer) 64, BUN/Creatinine Ratio 28.1 H, Random Glucose 128 H D, Calcium 8.5, Creatine Kinase 850 H 05/26/19 05:37: WBC 7.9, RBC 3.22 L, Hgb 9.9 L, Hct 31.0 L, MCV 96.3, MCH 30.7, MCHC 31.9 L, RDW 13.4, Plt Count 212, MPV 10.5, Immature Gran % (Auto) 0.80 H, Immature Gran # (Auto) 0.06 H, Neutrophils % 63.1, Lymphocytes % 22.6, Monocytes % 11.3 H, Eosinophils % 1.9, Basophils % 0.3, Nucleated RBC % 0.0, Neutrophils # 5.0, Lymphocytes # 1.78, Monocytes # 0.9, Eosinophils # 0.2, Absolute Basophils 0.0 05/26/19 05:37: Sodium 142, Plasma Sodium 142, Potassium 3.6, Chloride 108 H, Ca rbon Dioxide 24.3, Anion Gap 13.3, BUN 28 H, Creatinine 0.85, Est GFR (Non-Af Amer) 67, BUN/Creatinine Ratio 32.9 H, Random Glucose 94, Calcium 8.5, Calcium Adj for Albumin 9.6, Total Bilirubin 0.4, AST 39, ALT 49, Alkaline Phosphatase 62, Total Protein 5.3 L, Albumin 2.2 L 05/26/19 05:37: Creatine Kinase 434 H Discharge Location: [facility] Disposition: Home Health Service Condition: Stable Level of Care: SNF Discharge Activity: Activity as tolerated Discharge Diet: General/regular food Referrals: Ana Hoskins MD [Primary Care Provider] - Additional Patient Instructions (free text): [facility] new. Please call report and fax orders upon discharge. PT and bath aide. -Please make TCM appointment unless jail discharge, or if following up with outside provider. Thank you! Adriane @ [facility] [phone] or Mary at [phone]. Prescriptions (Any new or edited meds): Aspirin [Aspirin Chewable] 81 mg PO DAILY #30 tab.chew Metoprolol Tartrate [Lopressor] 50 mg PO BID #60 tab Nystatin [Mycostatin Powder] 1 appl TOPICAL BID #1 btl Acetaminophen [Tylenol] 650 mg PO Q4H PRN #60 tab PRN Reason: Pain Complete Home Medications List: Complete Home Medication List: Multivitamins [Multivitamin Sukumar] 1 cap PO DAILY #90 cap 06/10/13 Ascorbate Calcium [Vitamin C] 500 mg PO DAILY 01/11/16 Bisacodyl [Dulcolax] 5 mg PO DAILY 01/11/16 Calcium Carbonate/Vitamin D3 [Calcium 500-Vit D3 200 Tablet] 1 ea PO DAILY 01/11/16 Ferrous Sulfate [Iron] 325 mg PO BID 01/11/16 Nitroglycerin 0.4 mg SL Q5M PRN 01/11/16 oxybutynin chloride 5 mg tablet 5 mg PO HS #30 tab 01/05/19 enalapril maleate 10 mg tablet 10 mg PO BID #60 tab 01/06/19 simvastatin 40 mg tablet 40 mg PO DAILY #30 tab 01/06/19 oxyCODONE HCL/ACETAMINOPHEN [Oxycodone-Acetaminophen 5-325] 1 ea PO QID PRN #20 tab 05/13/19 Acetaminophen [Tylenol] 650 mg PO Q4H PRN #60 tab 05/28/19 Aspirin [Aspirin Chewable] 81 mg PO DAILY #30 tab.chew 05/28/19 Metoprolol Tartrate [Lopressor] 50 mg PO BID #60 tab 05/28/19 Nystatin [Mycostatin Powder] 1 appl TOPICAL BID #1 btl 05/28/19
[2019-05-28 09:54] LABS: Hematocrit 33.1 % (37.0-47.0); Hemoglobin 10.6 gm/dL (12.5-16.0); Mean Cell Volume 94.3 fl (78-100); Mean Corpuscular Hemoglobin 30.2 pg (27-31); Mean Platelet Volume 10.3 fl (8-12.5); Neutrophil # 6.2 K/mm3 (1.3-6.0); Platelet Count 286 K/mm3 (150-450); Red Blood Count 3.51 M/mm3 (4.2-5.4); Red Cell Distribution Width 13.4 % (11.5-14.0); White Blood Count 8.8 K/mm3 (4.0-10.5)
[2019-05-28 10:16] LABS: Albumin * 2.4 gm/dl (3.4-5.0); Anion Gap 10.4 mmol/L (6.8-13.8); BUN/Creatinine Ratio 15.8 (9.0-21.6); Bilirubin, Total 0.4 mg/dL (0.0-1.1); Ca. Corrected For Albumin 9.4 mg/dL (8.4-10.2); Calcium * 8.4 mg/dL (7.9-10.9); Carbon Dioxide 28.8 mmol/L (24-32.6); Digoxin 0.5 ng/mL (0.5-2.0); Potassium 3.2 mmol/L (3.4-4.6); Total Protein 5.5 gm/dL (6.2-8.2); Troponin I 0.055 ng/mL (0.00-0.10)
[2019-05-28] MEDS ORDERED: FUROSEMIDE 40 MG TABLET PO ONE (11:07)
[2019-05-28] MEDS ORDERED: POTASSIUM CHLORIDE 10 MEQ TABLET.SA PO ONE (11:08)
[2019-05-28] MEDS: ENOXAPARIN SODIUM 40 MG/0.4 ML SYRG SC SCH (17:10)
[2019-05-28] MEDS: OXYBUTYNIN CHLORIDE 5 MG TABLET PO SCH (21:28)
[2019-05-29 06:37] LABS: BUN/Creatinine Ratio 15.5 (9.0-21.6); Calcium * 8.7 mg/dL (7.9-10.9); Carbon Dioxide 30.4 mmol/L (24-32.6); Estimated Creat Clear 31.7; Potassium 3.4 mmol/L (3.4-4.6)
--- NOTE | 2019-05-29 08:14 | DS ---
(1) Multiple falls Problem: Acute (2) Atrial fibrillation Problem: Acute Qualifiers: Atrial fibrillation type: persistent Qualified Code(s): I48.1 - Persistent atrial fibrillation (3) Elevated troponin Problem: Acute (4) Rib fractures Problem: Acute Qualifiers: Encounter type: initial encounter Rib fracture type: multiple ribs Fracture type: closed Laterality: left Qualified Code(s): S22.42XA - Multiple fractures of ribs, left side, initial encounter for closed fracture (5) Elevated CK Problem: Resolved (6) Rhabdomyolysis Problem: Resolved (7) Hypertension Problem: Chronic Qualifiers: Hypertension type: essential hypertension Qualified Code(s): I10 - Essential (primary) hypertension Description of Stay: Viry Ramirez is an 88-year-old white female patient of Dr. Ana Hoskins who was admitted on 05/23/2019 because of a fall. The patient was found by her son on the floor on the morning of admission. The last time they talked to her was the night before her admission. 10 days prior to admission the patient had fallen down and broke her ribs and was seen in our emergency room. She had seen her neurologist who had told her that her Parkinson's disease has progressively gotten worse. In the emergency room the patient was found to be in atrial fibrillation with rapid ventricular response. Her troponin was slightly elevated at 0.2 and her CK was in the 4874, WBC of 16. Her chest x-ray showed mild cardiomegaly, her head CT scan showed no acute intracranial process, and her pelvic and hip x-ray showed osteopenia and degenerative changes no acute fractures. The family also says that her dementia is been getting worse lately. She was then admitted for further evaluation and treatment. She recieved IV digoxin to slow her HR as her low BP could not tolerate a cardizem drip. Her rate got controlled and she was put back on her metoprolol. Her Ck trended down to normal. Her Echo showed showed mild concentric left ventricular hypertrophy, normal EF, indeterminate diastolic dyfunction, but high E-mitral flow mild AR/mild , slightly D shaped septum but RVSP of only 35 mm Hg. Discussion was done with family- they did not want rhythm control only rate control, they did not want aggressive with her elevated troponin which like is due to increase demand ischemia, they did not want anticoagulation just ASA due to her increased risk for falls. They also did not want a CTA following P.E. protocol for her AFib and slightly D shaped septum. She is stable to be discharged to the OR but then her HR went down to the 30's after receiving her Metoprolol. She started to go up with activity. Repeat labs showed mild hypokalemia and elevated BNP. Klorcon and Lasix x 1 were given. Her digoxin level was 0.5. Her discharge was cancelled. She was observed overnight and has not had bradycardia overnight-60's-70's. Her last dose of digoxin was 05/24/19. Half life of Digoxin is 24-36 hours. Will restart her Metoprolol tomorrow at 25 mg PO BID. She is stable to be discharged today. She is homebound due to her multiple medical conditions including Progressive Parkinson, Dementia and the need for physical therapy is for her deconditioning and frequent falls. The need for home health care skilled services is directly related to the time spent face to face with the person. Procedures Performed: none Results and Findings: Lab Pending Results 05/23/19 09:52: Urine Color Yellow, Urine Appearance Clear, Urine pH 6.0, Ur Specific [place] 1.030, Urine Protein 100 H, Urine Glucose (UA) Negative, Urine Ketones Large, Urine Blood 250 H, Urine Nitrate Negative, Urine Bilirubin Negative, Prot Sulfosalicylic Acd 3+ H, Urine Urobilinogen Normal, Ur Leukocyte Esterase Negative, Urine RBC 0-5, Urine WBC 0-5, Ur Epithelial Cells 0-5, Urine Bacteria None seen, Urine Culture Comments No culture indicated 05/23/19 10:00: WBC 14.3 H, RBC 4.06 L, Hgb 12.5, Hct 38.3, MCV 94.3, MCH 30.8, MCHC 32.6, RDW 13.4, Plt Count 275, MPV 10.8, Immature Gran % (Auto) 0.60 H, Immature Gran # (Auto) 0.08 H, Neutrophils % 84.3 H, Lymphocytes % 5.0 L, Monocytes % 9.9 H, Eosinophils % 0.1, Basophils % 0.1, Nucleated RBC % 0.0, Neutrophils # 12.1 H, Lymphocytes # 0.71 L, Monocytes # 1.4 H, Eosinophils # 0.0, Absolute Basophils 0.0 05/23/19 10:00: Sodium 140, Plasma Sodium 140, Potassium 4.1, Chloride 103, Carbon Dioxide 21.1 L, Anion Gap 20.0 H, BUN 43 H, Creatinine 1.19, Est GFR (Non-Af Amer) 45 L, BUN/Creatinine Ratio 36.1 H, Random Glucose 126 H, Calcium 10.0, Calcium Adj for Albumin 10.1, Total Bilirubin 0.7, AST 190 H, ALT 84 H, Alkaline Phosphatase 77, Creatine Kinase 4874 H, Troponin I 0.216 H*, Total Protein 7.1, Albumin 3.5 05/23/19 14:00: Troponin I 0.228 H* 05/24/19 06:00: TSH 0.762 05/24/19 06:00: Creatine Kinase 1717 H 05/24/19 06:12: WBC 9.8 D, RBC 3.28 L, Hgb 10.2 L, Hct 31.2 L, MCV 95.1, MCH 31.1 H, MCHC 32.7, RDW 13.5, Plt Count 234, MPV 11.1, Immature Gran % (Auto) 0.30, Immature Gran # (Auto) 0.03, Neutrophils % 75.6 H, Lymphocytes % 12.1 L, Monocytes % 11.8 H, Eosinophils % 0.0, Basophils % 0.2, Nucleated RBC % 0.0, Neutrophils # 7.4 H, Lymphocytes # 1.19 L, Monocytes # 1.2 H, Eosinophils # 0.0, Absolute Basophils 0.0 05/24/19 06:12: Sodium 144 H, Plasma Sodium 144 H, Potassium 3.5, Chloride 110 H, Carbon Dioxide 21.4 L, Anion Gap 16.1 H, BUN 36 H, Creatinine 0.94, Est GFR (Non-Af Amer) 60 D, BUN/Creatinine Ratio 38.3 H, Random Glucose 94, Calcium 8.7 05/25/19 08:16: Sodium 140, Plasma Sodium 140, Potassium 3.2 L, Chloride 106, Carbon Dioxide 25.0, Anion Gap 12.2, BUN 25 H, Creatinine 0.89, Est GFR (Non-Af Amer) 64, BUN/Creatinine Ratio 28.1 H, Random Glucose 128 H D, Calcium 8.5, Creatine Kinase 850 H 05/26/19 05:37: WBC 7.9, RBC 3.22 L, Hgb 9.9 L, Hct 31.0 L, MCV 96.3, MCH 30.7, MCHC 31.9 L, RDW 13.4, Plt Count 212, MPV 10.5, Immature Gran % (Auto) 0.80 H, Immature Gran # (Auto) 0.06 H, Neutrophils % 63.1, Lymphocytes % 22.6, Monocytes % 11.3 H, Eosinophils % 1.9, Basophils % 0.3, Nucleated RBC % 0.0, Neutrophils # 5.0, Lymphocytes # 1.78, Monocytes # 0.9, Eosinophils # 0.2, Absolute Basophils 0.0 05/26/19 05:37: Sodium 142, Plasma Sodium 142, Potassium 3.6, Chloride 108 H, Carbon Dioxide 24.3, Anion Gap 13.3, BUN 28 H, Creatinine 0.85, Est GFR (Non-Af Amer) 67, BUN/Creatinine Ratio 32.9 H, Random Glucose 94, Calcium 8.5, Calcium Adj for Albumin 9.6, Total Bilirubin 0.4, AST 39, ALT 49, Alkaline Phosphatase 62, Total Protein 5.3 L, Albumin 2.2 L 05/26/19 05:37: Creatine Kinase 434 H 05/28/19 09:44: WBC 8.8, RBC 3.51 L, Hgb 10.6 L, Hct 33.1 L, MCV 94.3, MCH 30.2, MCHC 32.0, RDW 13.4, Plt Count 286, MPV 10.3, Immature Gran % (Auto) 0.50 H, Immature Gran # (Auto) 0.04 H, Neutrophils % 71.0, Lymphocytes % 15.0 L, Monocytes % 11.1 H, Eosinophils % 2.1, Basophils % 0.3, Nucleated RBC % 0.0, Neutrophils # 6.2 H, Lymphocytes # 1.31 L, Monocytes # 1.0, Eosinophils # 0.2, Absolute Basophils 0.0 05/28/19 09:44: Sodium 140, Plasma Sodium 140, Potassium 3.2 L, Chloride 104, Carbon Dioxide 28.8, Anion Gap 10.4, BUN 16, Creatinine 1.01, Est GFR (Non-Af Amer) 55 L, BUN/Creatinine Ratio 15.8, Random Glucose 110, Calcium 8.4, Calcium Adj for Albumin 9.4, Total Bilirubin 0.4, AST 22, ALT 41, Alkaline Phosphatase 65, Creatine Kinase 98, Troponin I 0.055, B-Natriuretic Peptide 7478 H, Total Protein 5.5 L, Albumin 2.4 L, Digoxin 0.5 05/29/19 06:24: Sodium 142, Plasma Sodium 142, Potassium 3.4, Chloride 104, Ca rbon Dioxide 30.4, Anion Gap 11.0, BUN 15, Creatinine 0.97, Est GFR (Non-Af Amer) 58 L, BUN/Creatinine Ratio 15.5, Random Glucose 91, Calcium 8.7 Discharge Location: [facility] Disposition: [facility] Agency: [facility] Home Health Condition: Stable Discharge Activity: Activity as tolerated Discharge Diet: Low salt, Other - no added salt diet Referrals: Ana Hoskins MD [Primary Care Provider] - Problem Oriented Discharge Instructions to Patient/Family: Atrial Fibrillation, [id number] Additional Patient Instructions (free text): [facility] new. Please call report and fax orders upon discharge. PT and bath aide. Follow up appointment with Dr. Hoskins on 06/05/19 at 2:00pm. Prescriptions (Any new or edited meds): Aspirin [Aspirin Chewable] 81 mg PO DAILY #30 tab.chew Potassium Chloride [Klor-Con 10] 10 meq PO DAILY #30 tab Furosemide [Lasix] 20 mg PO DAILY #30 tab Metoprolol Tartrate [Lopressor] 25 mg PO BID #60 tab Nystatin [Mycostatin Powder] 1 appl TOPICAL BID #1 btl oxyCODONE HCL/ACETAMINOPHEN [Percocet 5 MG/325 MG] 1 tab PO QID PRN #30 tab PRN Reason: Pain Acetaminophen [Tylenol] 650 mg PO Q4H PRN #60 tab PRN Reason: Pain Complete Home Medications List: Complete Home Medication List: Multivitamins [Multivitamin Sukumar] 1 cap PO DAILY #90 cap 06/10/13 Ascorbate Calcium [Vitamin C] 500 mg PO DAILY 01/11/16 Bisacodyl [Dulcolax] 5 mg PO DAILY 01/11/16 Calcium Carbonate/Vitamin D3 [Calcium 500-Vit D3 200 Tablet] 1 ea PO DAILY 01/11/16 Ferrous Sulfate [Iron] 325 mg PO BID 01/11/16 Nitroglycerin 0.4 mg SL Q5M PRN 01/11/16 oxybutynin chloride 5 mg tablet 5 mg PO HS #30 tab 01/05/19 enalapril maleate 10 mg tablet 10 mg PO BID #60 tab 01/06/19 simvastatin 40 mg tablet 40 mg PO DAILY #30 tab 01/06/19 Acetaminophen [Tylenol] 650 mg PO Q4H PRN #60 tab 05/28/19 Aspirin [Aspirin Chewable] 81 mg PO DAILY #30 tab.chew 05/28/19 Nystatin [Mycostatin Powder] 1 appl TOPICAL BID #1 btl 05/28/19 Furosemide [Lasix] 20 mg PO DAILY #30 tab 05/29/19 Metoprolol Tartrate [Lopressor] 25 mg PO BID #60 tab 05/29/19 Potassium Chloride [Klor-Con 10] 10 meq PO DAILY #30 tab 05/29/19 oxyCODONE HCL/ACETAMINOPHEN [Percocet 5 MG/325 MG] 1 tab PO QID PRN #30 tab 05/29/19
[2019-05-29] MEDS: BISACODYL 5 MG TABLET.DR PO SCH (08:22)
[2019-05-29] MEDS: NYSTATIN 15 APPL BTL TP SCH (08:22)
[2019-05-29] MEDS: ASPIRIN 81 MG TAB.CHEW PO SCH (08:22)
[2019-05-29] MEDS: MULTIVITAMINS 1 CAP CAPSULE PO SCH (08:22)
[2019-05-29] MEDS: CALCIUM CARBONATE/VITAMIN D3 1 TAB TABLET PO SCH (08:22)
[2019-05-29] MEDS: FERROUS SULFATE 325 MG TABLET PO SCH (08:22)
[2019-05-29] MEDS: SIMVASTATIN 40 MG TABLET PO SCH (08:22)
[2019-05-29] MEDS: ASCORBIC ACID 500 MG TABLET PO SCH (08:22)
[2019-05-29 13:17] VITALS: BP 108/54
== END 2019-05-29 13:00 | disposition home health service (06) | DRG 309 ==
LOC: ER 09:21 → MS 12:35
PROVIDERS: ADMIT Internal Medicine; ATTEND Internal Medicine
DX: I10 Essential (primary) hypertension; I47.1 Supraventricular tachycardia; Z91.81 History of falling; R74.8 Abnormal levels of other serum enzymes; R29.6 Repeated falls; W01.0XXA Fall on same level from slipping, tripping and stumbling without subsequent striking against object, initial encounter; F03.90 Unspecified dementia, unspecified severity, without behavioral disturbance, psychotic disturbance, mood disturbance, and anxiety; S22.42XA Multiple fractures of ribs, left side, initial encounter for closed fracture; M62.82 Rhabdomyolysis; I24.8 Other forms of acute ischemic heart disease; S20.212A Contusion of left front wall of thorax, initial encounter; G20 Parkinson's disease; E87.6 Hypokalemia; I48.1 Persistent atrial fibrillation; S30.0XXA Contusion of lower back and pelvis, initial encounter
CPT/HCPCS: 36415; 70450; 71010; 71045; 73502; 80048; 80053; 80162; 81001; 82550; 83519; 83880; 84443; 84484; 85025; 93005; 93306; 96361; 96374; 97110; 97116; 97161; 97530; 99284

== ENCOUNTER 2019-06-01 14:43 | Inpatient (IN) ==
[2019-06-01 15:19] LABS: Hematocrit 33.5 % (37.0-47.0); Hemoglobin 10.9 gm/dL (12.5-16.0); Mean Cell Volume 94.6 fl (78-100); Mean Corpuscular Hemoglobin 30.8 pg (27-31); Mean Corpuscular Hgb Conc 32.5 g/dl (32-36); Mean Platelet Volume 10.2 fl (8-12.5); Neutrophil # 7.3 K/mm3 (1.3-6.0); Neutrophil % 73.6 % (42-75.0); Platelet Count 269 K/mm3 (150-450); Red Blood Count 3.54 M/mm3 (4.2-5.4); Red Cell Distribution Width 13.3 % (11.5-14.0)
[2019-06-01 15:26] LABS: INR 1.03 INR (0.92-1.08); Partial Thrombolplastin Time 22.5 Seconds (24-32); Prothrombin Time (Patient) 10.2 Seconds (9.1-10.7)
[2019-06-01 15:27] LABS: Anion Gap 12.3 mmol/L (6.8-13.8); BUN/Creatinine Ratio 21.5 (9.0-21.6); Bilirubin, Total 0.4 mg/dL (0.0-1.1); Ca. Corrected For Albumin 9.6 mg/dL (8.4-10.2); Calcium * 9.1 mg/dL (7.9-10.9); Carbon Dioxide 28.4 mmol/L (24-32.6); Potassium 3.7 mmol/L (3.4-4.6); Total Protein 6.3 gm/dL (6.2-8.2)
--- NOTE | 2019-06-01 15:45 | ERNOTE ---
Neuro HPI ER Record Presenting Symptoms: weakness, facial droop, impaired speech, confusion, difficulty walking Time Seen by Provider: 06/01/19 14:46 Source: family, EMS Exam Limitations: physical impairment, dementia Immunizations: IMMUNIZATION HX Immunizations Up to Date Yes History of Influenza Vaccine Yes Hx Pneumococcal Vaccination Yes Allergies/Adverse Reactions: Allergies Allergy/AdvReac Type Severity Reaction Status Date / Time No Known Allergies Allergy Verified 06/01/19 14:50 Home Medications: HOME MEDICATIONS Multivitamins [Multivitamin Sukumar] 1 cap PO DAILY #90 cap 06/10/13 [Last Taken Unknown] Bisacodyl [Dulcolax] 5 mg PO DAILY 01/11/16 [Last Taken Unknown] Calcium Carbonate/Vitamin D3 [Calcium 500-Vit D3 200 Tablet] 1 ea PO DAILY 01/11/16 [Last Taken Unknown] Ferrous Sulfate [Iron] 325 mg PO BID 01/11/16 [Last Taken Unknown] Nitroglycerin 0.4 mg SL Q5M PRN 01/11/16 [Last Taken Unknown] oxybutynin chloride 5 mg tablet 5 mg PO HS #30 tab 01/05/19 [Last Taken Unknown] enalapril maleate 10 mg tablet 10 mg PO BID #60 tab 01/06/19 [Last Taken Unknown] simvastatin 40 mg tablet 40 mg PO DAILY #30 tab 01/06/19 [Last Taken Unknown] Acetaminophen [Tylenol] 650 mg PO Q4H PRN #60 tab 05/28/19 [Last Taken Unknown] Aspirin [Aspirin Chewable] 81 mg PO DAILY #30 tab.chew 05/28/19 [Last Taken Unknown] Nystatin [Mycostatin Powder] 1 appl TOPICAL BID #1 btl 05/28/19 [Last Taken Unknown] Furosemide [Lasix] 20 mg PO DAILY #30 tab 05/29/19 [Last Taken Unknown] Metoprolol Tartrate [Lopressor] 25 mg PO BID #60 tab 05/29/19 [Last Taken Unknown] Potassium Chloride [Klor-Con 10] 10 meq PO DAILY #30 tab 05/29/19 [Last Taken Unknown] oxyCODONE HCL/ACETAMINOPHEN [Percocet 5 MG/325 MG] 1 tab PO QID PRN #30 tab 05/29/19 [Last Taken Unknown] - History of Present Illness Narrative: Patient is a resident in the [place] and was noted to have some right-sided facial droop, difficulty walking and appeared to be significantly more confused over her baseline dementia. Onset: sudden onset Severity: severe - Character of Deficits New weakness: Present: RUE, RLE, facial (rt) Additional Deficits: Present: impaired speech, decrease ability to stand Baseline Cognition: Present: alert but confused Baseline Gait: Present: walks only w/ assistance Associated Symptoms: Denies: fever/chills, sweating Prior Treament: Reports: recently seen, treated by physician, recently hospitalized Review of Systems - Review of Systems Constitutional: Present: See HPI EYE: Present: no symptoms reported ENT: Present: no symptoms reported Respiratory: Present: no symptoms reported Cardiology: Present: no symptoms reported Gastrointestinal/Abdominal: Present: no symptoms reported Genitourinary: Present: no symptoms reported Musculoskeletal: Present: no symptoms reported Skin: Present: no symptoms reported Neurological: Present: See HPI Endocrine: Present: no symptoms reported Hematologic/Lymphatic: Present: no symptoms reported Psych: Present: no symptoms reported Medical History (Updated 06/01/19 @ 15:44 by Henry Espinoza DO) Urinary incontinence (Chronic) Onset Date: ~06/2008 Transient ischemic attack (Resolved) Onset Date: ~2004 Supraventricular tachycardia (Chronic) Onset Date: ~10/11/07 Rotator cuff injury (Resolved) Onset Date: ~03/03/13 Right small rotator cuff tear Osteoporosis (Chronic) Onset Date: ~2000 Lower extremity edema (Chronic) Onset Date: ~08/17/13 Probably due to inactivity and increased salt intake Trigger finger (acquired) (Resolved) Onset Date: ~12/12/12 Left small finger Hypertension (Chronic) Hyperlipidemia (Chronic) Trochanteric bursitis, unspecified hip (Resolved) Onset Date: ~11/05/12 left Degenerative joint disease (DJD) of hip (Acute) Onset Date: ~04/07/13 Hematoma (Acute) Onset Date: ~08/02/15 Resolving, RLQ Finger fracture (Acute) Depression (Acute) Onset Date: ~2000 Carpal tunnel syndrome (Acute) Onset Date: ~12/12/12 Bursitis (Resolved) Onset Date: ~02/2012 right knee Anemia (Chronic) Onset Date: ~07/29/12 Hx-TIA (transient ischemic attack) Confusion Surgical History: Surgical History (Updated 05/23/19 @ 14:17 by Betty Nicole MD) History of Utero Sacral Ligament Fixation Onset Date: ~02/07/11 Dr. Garcia-bilateral Anterior and Posterior Repair History of YAG laser capsulotomy of lens Onset Date: ~06/26/06 Dr. Mancini-Left History of adenoidectomy Onset Date: Unknown as child History of appendectomy Onset Date: ~1944 History of arthroscopy of right knee Onset Date: ~01/24/12 Dr. Ortiz History of cardiac catheterization Onset Date: ~06/18/13 Kathleen History of carpal tunnel release Onset Date: Unknown 07/04/07 Dr. Rhoades 12/18/2012 left carpal tunnel release and left small finger trigger finger Dr. Ortiz History of cataract surgery Onset Date: ~2002 right 10/05/2003 left 12/28/2003 History of section Onset Date: ~1961 History of cystoscopy Onset Date: ~02/07/11 Dr. Garcia History of esophagogastroduodenoscopy (EGD) Onset Date: ~05/26/13 Dr. Maria Fernanda Fox positive. Mod chronic gastric inflammation History of foot surgery Onset Date: ~02/02/16 1979-Right for spurs 02/02/16-B/L exostectomy by Dr. Dinh at [facility] History of pubovaginal sling Onset Date: ~02/07/13 Dr. Garcia History of repair of hip fracture Onset Date: ~07/24/13 left-[place] History of tonsillectomy Onset Date: Unknown as child History of total abdominal hysterectomy and bilateral salpingo-oophorectomy Onset Date: ~1975 Fibroids Family History: Family History (Updated 07/11/18 @ 11:17 by Reny Lugo CMA) Father , age 67 Myocardial infarction CVA (cerebral vascular accident) Status post removal of lung Nervous breakdown Mother , age 86 Alzheimers disease Brother , age 75 Cancer Lung CA Kidney failure Brother Alcoholic Social History: (Last Reviewed 06/01/19 @ 15:15 by Cynthia Humphries RN) Social History: penitentiary: No Marital status: / household members: none number of children: 2 current occupational status: retired Highest education level completed: high school graduate Service: No Tobacco: Smoking Status: Never smoker Alcohol: alcohol intake: current alcohol intake frequency: holiday/special occasion Substance Use: substance use type: does not use Dietary Habits: caffeine: Yes Physical Exam - Physical Exam General Appearance: Present: wd/wn, alert, severe distress Head Exam: Present: normal inspection, no evidence of injury Eye Exam: Normal inspection: bilateral, PERRL: bilateral Ears, Nose, Throat: Present: normal ENT inspection, H, normal pharynx Neck: Present: normal inspection Respiratory: Present: no respiratory distress, normal breath sounds, no accessory muscle use, lungs clear Cardiovascular/Chest: Present: regular rate, rhythm, no murmur, normal peripheral pulses Gastrointestinal/Abdominal: Present: normal bowel sounds, nondistended, soft, no organomegaly Rectal Exam: Present: deferred Pelvic Exam: Present: deferred Back Exam: Present: normal inspection Extremity Exam: Present: normal inspection, pedal edema Neurological Exam: Present: facial droop, motor weakness, disoriented to person, disoriented to time, disoriented to place, disoriented to situation Skin Exam: Present: normal color, warm/dry Lymphatic Exam: Present: no adenopathy Alphonso Coma Scale - Assess Eye Opening: To Voice Motor: Localizes to Pain Verbal: Confused - Total Coma Scale Total: 12 Progress - Results and Orders Patient's Lab Results:: I have reviewed the patient's lab results. - Vital Signs Patient's Vital Signs:: I have reviewed the patient's vital signs. Vital Signs: Vital Signs 06/01/19 14:46 06/01/19 14:51 Temperature 36.3 C Pulse Rate 72 72 Respiratory Rate 16 Blood Pressure 116/53 O2 Sat by Pulse Oximetry 95 - EKG EKG #1 EKG: NSR - X-Ray X-Ray #1 X-Ray: chest Interpretation: Reviewed by me - CT/Ultrasound CT/Ultrasound Narrative: CT of the head is reviewed by me - Progress/Reassessment Chief Complaint: Altered Mental Status Plan - Plan Plan: I had a lengthy discussion with the daughter and the 2 grandsons and they were prefer that TPA not be given. One grandson is a nurse here and explained to the rest of his family that given that she recently had 4 broken ribs that the risk of bleeding in the chest was high. Patient also has baseline dementia which would not of improved with the TPA either and the family at this point would like supportive care. I discussed the case with Dr. Valencia, the on-call phys ician, and he agrees to accept care while we see if more definitive placement would be indicated. Departure Clinical Impression: Acute CVA (cerebrovascular accident) - Departure Disposition: Still a patient Condition: Fair Critical Care Note - Critical Care Note Total Time (mins): 35 Comments: TPA was considered for the patient but after lengthy discussion with the family it was decided this would not be a reasonable option. There were some relative contraindications that could have loom large, for recently fractured ribs. Intubation was also a possible option, however the patient is maintaining her airway and is not pooling secretions, and as she is a DNR anyway we will refrain from that procedure.
--- NOTE | 2019-06-01 19:02 | HP ---
Chief Complaint - Chief Complaint Date of Service: 06/01/19 Time of Service: 19:02 Chief Complaint: acute cva History of Present Illness: 88-year-old female with history of recently diagnosed A. fib presented to the ER yesterday following sudden right-sided weakness right-sided facial droop and inability to communicate. Concern for CVA patient was taken back for CT of her head which did not show any acute abnormalities. TPA was discussed as it was with in the window to be given but due to patient's recent fall history with multiple rib fractures, concern for bleeding was high and so this was held. Family decided that no further intervention was wanted. She was admitted to the floor under inpatient status fro acute cva. Her blood pressure was mildly elevated. She had received a dose of full strength asa earlier from [place] [facility]. Patient was nonverbal and unable to respond to questions. She is protecting her airway Medical History (Updated 06/01/19 @ 15:44 by Henry Espinoza DO) Urinary incontinence (Chronic) Onset Date: ~06/2008 Transient ischemic attack (Resolved) Onset Date: ~2004 Supraventricular tachycardia (Chronic) Onset Date: ~10/11/07 Rotator cuff injury (Resolved) Onset Date: ~03/03/13 Right small rotator cuff tear Osteoporosis (Chronic) Onset Date: ~2000 Lower extremity edema (Chronic) Onset Date: ~08/17/13 Probably due to inactivity and increased salt intake Trigger finger (acquired) (Resolved) Onset Date: ~12/12/12 Left small finger Hypertension (Chronic) Hyperlipidemia (Chronic) Trochanteric bursitis, unspecified hip (Resolved) Onset Date: ~11/05/12 left Degenerative joint disease (DJD) of hip (Acute) Onset Date: ~04/07/13 Hematoma (Acute) Onset Date: ~08/02/15 Resolving, RLQ Finger fracture (Acute) Depression (Acute) Onset Date: ~2000 Carpal tunnel syndrome (Acute) Onset Date: ~12/12/12 Bursitis (Resolved) Onset Date: ~02/2012 right knee Anemia (Chronic) Onset Date: ~07/29/12 Hx-TIA (transient ischemic attack) Confusion Surgical History: Surgical History (Updated 05/23/19 @ 14:17 by Betty Nicole MD) History of Utero Sacral Ligament Fixation Onset Date: ~02/07/11 Dr. Garcia-bilateral Anterior and Posterior Repair History of YAG laser capsulotomy of lens Onset Date: ~06/26/06 Dr. Mancini-Left History of adenoidectomy Onset Date: Unknown as child History of appendectomy Onset Date: ~1944 History of arthroscopy of right knee Onset Date: ~01/24/12 Dr. Ortiz History of cardiac catheterization Onset Date: ~06/18/13 Kathleen History of carpal tunnel release Onset Date: Unknown 07/04/07 Dr. Rhoades 12/18/2012 left carpal tunnel release and left small finger trigger finger Dr. Ortiz History of cataract surgery Onset Date: ~2002 right 10/05/2003 left 12/28/2003 History of section Onset Date: ~1961 History of cystoscopy Onset Date: ~02/07/11 Dr. Garcia History of esophagogastroduodenoscopy (EGD) Onset Date: ~05/26/13 Dr. Maria Fernanda Fox positive. Mod chronic gastric inflammation History of foot surgery Onset Date: ~02/02/16 1979-Right for spurs 02/02/16-B/L exostectomy by Dr. Dinh at [facility] History of pubovaginal sling Onset Date: ~02/07/13 Dr. Garcia History of repair of hip fracture Onset Date: ~07/24/13 left-[facility] History of tonsillectomy Onset Date: Unknown as child History of total abdominal hysterectomy and bilateral salpingo-oophorectomy Onset Date: ~1975 Fibroids Family History: Family History (Updated 07/11/18 @ 11:17 by Reny Lugo CMA) Father , age 67 Myocardial infarction CVA (cerebral vascular accident) Status post removal of lung Nervous breakdown Mother , age 86 Alzheimers disease Brother , age 75 Cancer Lung CA Kidney failure Brother Alcoholic Social History: (Last Reviewed 06/01/19 @ 15:15 by Cynthia Humphries RN) Social History: [place] [facility] [place]: No Marital status: / household members: none number of children: 2 current occupational status: retired Highest education level completed: high school graduate Service: No Tobacco: Smoking Status: Never smoker Alcohol: alcohol intake: current alcohol intake frequency: holiday/special occasion Substance Use: substance use type: does not use Dietary Habits: caffeine: Yes Review Of Systems (GEN) - Review of Systems Additional Comments: unable to respond due to acute cva Immunizations: IMMUNIZATION HX Immunizations Up to Date Yes History of Influenza Vaccine Yes Hx Pneumococcal Vaccination Yes Allergies/Adverse Reactions: Allergies Allergy/AdvReac Type Severity Reaction Status Date / Time No Known Allergies Allergy Verified 06/01/19 16:09 Home Medications: HOME MEDICATIONS Multivitamins [Multivitamin Sukumar] 1 cap PO DAILY #90 cap 06/10/13 [Last Taken Unknown] Bisacodyl [Dulcolax] 5 mg PO DAILY 01/11/16 [Last Taken Unknown] Calcium Carbonate/Vitamin D3 [Calcium 500-Vit D3 200 Tablet] 1 ea PO DAILY 01/11/16 [Last Taken Unknown] Ferrous Sulfate [Iron] 325 mg PO BID 01/11/16 [Last Taken Unknown] Nitroglycerin 0.4 mg SL Q5M PRN 01/11/16 [Last Taken Unknown] oxybutynin chloride 5 mg tablet 5 mg PO HS #30 tab 01/05/19 [Last Taken Unknown] enalapril maleate 10 mg tablet 10 mg PO BID #60 tab 01/06/19 [Last Taken Unknown] Acetaminophen [Tylenol] 650 mg PO Q4H PRN #60 tab 05/28/19 [Last Taken Unknown] Aspirin [Aspirin Chewable] 81 mg PO DAILY #30 tab.chew 05/28/19 [Last Taken Unknown] Nystatin [Mycostatin Powder] 1 appl TOPICAL BID #1 btl 05/28/19 [Last Taken Unknown] Furosemide [Lasix] 20 mg PO DAILY #30 tab 05/29/19 [Last Taken Unknown] Metoprolol Tartrate [Lopressor] 25 mg PO BID #60 tab 05/29/19 [Last Taken Unknown] Potassium Chloride [Klor-Con 10] 10 meq PO DAILY #30 tab 05/29/19 [Last Taken Unknown] oxyCODONE HCL/ACETAMINOPHEN [Percocet 5 MG/325 MG] 1 tab PO QID PRN #30 tab 05/29/19 [Last Taken Unknown] Simvastatin [Zocor] 40 mg PO HS 06/01/19 [Last Taken Unknown] Exam - Exam Vital Signs: Vital Signs - Last Taken Temp 37.1 C 06/01/19 16:09 Pulse 77 06/01/19 16:09 Resp 20 06/01/19 16:09 BP 137/56 06/01/19 16:09 Pulse Ox 96 06/01/19 16:09 Constitutional: Present: Other - nonverbal, unable to follow commands Eye Exam: bilateral eye: PERRL Respiratory: Present: lungs clear, normal breath sounds Cardiovascular/Chest: Present: regular rate, rhythm, systolic murmur Abdomen: Present: Normal bowel sounds /Rectal: Present: Exam deferred Skin Exam: Present: normal color, warm/dry Neurologic: Present: facial droop - right, other - normal babinski bilaterally Eye contact: Present: good eye contact Diagnostic Studies: Abnormal Lab Results 06/01/19 06/01/19 06/01/19 Range/Units 15:10 15:10 15:10 RBC 3.54 L (4.2-5.4) M/mm3 Hgb 10.9 L (12.5-16.0) gm/dL Hct 33.5 L (37.0-47.0) % Immature Gran % (Auto) 0.80 H (0.001-0.429) % Immature Gran # (Auto) 0.08 H (0.000-0.0310) K/mm3 Lymphocytes % 14.1 L (20-51) % Monocytes % 10.1 H (0.0-9) % Neutrophils # 7.3 H (1.3-6.0) K/mm3 Lymphocytes # 1.40 L (1.5-3.5) k/mm3 ESR 51 H (0-15) mm/hr PTT ([place]) 22.5 L (24-32) Seconds Albumin (3.4-5.0) gm/dl 06/01/19 Range/Units 15:10 RBC (4.2-5.4) M/mm3 Hgb (12.5-16.0) gm/dL Hct (37.0-47.0) % Immature Gran % (Auto) (0.001-0.429) % Immature Gran # (Auto) (0.000-0.0310) K/mm3 Lymphocytes % (20-51) % Monocytes % (0.0-9) % Neutrophils # (1.3-6.0) K/mm3 Lymphocytes # (1.5-3.5) k/mm3 ESR (0-15) mm/hr PTT ([place]) (24-32) Seconds Albumin 3.0 L (3.4-5.0) gm/dl Laboratory Results WBC 10.0 K/mm3 (4.0-10.5) 06/01/19 15:10 RBC 3.54 M/mm3 (4.2-5.4) L 06/01/19 15:10 Hgb 10.9 gm/dL (12.5-16.0) L 06/01/19 15:10 Hct 33.5 % (37.0-47.0) L 06/01/19 15:10 MCV 94.6 fl (78-100) 06/01/19 15:10 MCH 30.8 pg (27-31) 06/01/19 15:10 MCHC 32.5 g/dl (32-36) 06/01/19 15:10 RDW 13.3 % (11.5-14.0) 06/01/19 15:10 Plt Count 269 K/mm3 (150-450) 06/01/19 15:10 MPV 10.2 fl (8-12.5) 06/01/19 15:10 Immature Gran % (Auto) 0.80 % (0.001-0.429) H 06/01/19 15:10 Immature Gran # (Auto) 0.08 K/mm3 (0.000-0.0310) H 06/01/19 15:10 73.6 % (42-75.0) 06/01/19 15:10 14.1 % (20-51) L 06/01/19 15:10 10.1 % (0.0-9) H 06/01/19 15:10 0.8 % (0.0-3.0) 06/01/19 15:10 0.6 % (0.0-1.0) 06/01/19 15:10 Nucleated RBC % 0.0 k/mm3 (0-1) 06/01/19 15:10 7.3 K/mm3 (1.3-6.0) H 06/01/19 15:10 1.40 k/mm3 (1.5-3.5) L 06/01/19 15:10 1.0 k/mm3 (0.0-1.0) 06/01/19 15:10 0.1 k/mm3 (0.0-0.7) 06/01/19 15:10 Absolute Basophils 0.1 k/mm3 (0.0-0.1) 06/01/19 15:10 ESR 51 mm/hr (0-15) H 06/01/19 15:10 PT 10.2 Seconds (9.1-10.7) 06/01/19 15:10 INR (Anticoag Therapy) 1.03 INR (0.92-1.08) 06/01/19 15:10 PTT ([place]) 22.5 Seconds (24-32) L 06/01/19 15:10 Sodium 141 mmol/L (132-142) 06/01/19 15:10 141 mmol/L (130-142) 06/01/19 15:10 Potassium 3.7 mmol/L (3.4-4.6) 06/01/19 15:10 Chloride 104 mmol/L (97-106) 06/01/19 15:10 Carbon Dioxide 28.4 mmol/L (24-32.6) 06/01/19 15:10 12.3 mmol/L (6.8-13.8) 06/01/19 15:10 BUN 20 mg/dL (3-23) 06/01/19 15:10 0.93 mg/dL (0.4-1.4) 06/01/19 15:10 Est GFR (Non-Af Amer) 60 mL/min (60-130) 06/01/19 15:10 21.5 (9.0-21.6) 06/01/19 15:10 96 mg/dL (70-110) 06/01/19 15:10 Calcium 9.1 mg/dL (7.9-10.9) 06/01/19 15:10 Calcium Adj for Albumin 9.6 mg/dL (8.4-10.2) 06/01/19 15:10 0.4 mg/dL (0.0-1.1) 06/01/19 15:10 AST 25 U/L (0-48) 06/01/19 15:10 ALT 42 U/L (19-67) 06/01/19 15:10 77 U/L (50-170) 06/01/19 15:10 6.3 gm/dL (6.2-8.2) 06/01/19 15:10 3.0 gm/dl (3.4-5.0) L 06/01/19 15:10 Assessment/Plan - Narrative Narrative: 88-year-old female admitted to the floor under inpatient for acute CVA. Patient likely needs a higher level of care. Patient currently n.p.o. with normal saline at 100 mL's per hour. Speech therapy to see her in the morning for swallow study in order to possibly advance her diet. If she is unable to do so, will discuss other options such as comfort measures with possible hospice. Patient received an aspirin today. Patient was not a candidate for TPA due to recent traumas and high risk of bleeding, family did not wish to proceed with this. Patient currently a DNR. All medications currently held, will allow for permissive hypertension. SCDs placed, nurses will call with any questions or concerns. - Assessment/Plan (1) Acute CVA (cerebrovascular accident) Problem: Acute (2) Atrial fibrillation Problem: Acute Qualifiers: Atrial fibrillation type: persistent Qualified Code(s): I48.1 - Persistent atrial fibrillation (3) Hypertension Problem: Chronic Qualifiers: Hypertension type: essential hypertension Qualified Code(s): I10 - Essential (primary) hypertension
[2019-06-01] MEDS: NORMAL SALINE 1,000 ML IV PRN (22:10)
[2019-06-02] MEDS: NORMAL SALINE 1,000 ML IV PRN ×2 (07:49→18:11)
--- NOTE | 2019-06-02 11:29 | PN ---
Subjective - Date and Time Seen Date: 06/02/19 Time: 10:51 Subjective Narrative: Patient had no adverse events overnight. Her vital signs remained stable, she is slightly more conversive and responsive to questions though struggling to find her words. She denies any pain. Communication still minimal Review of systems unable to be obtained Objective Objective Narrative: Pt did well overnight - Vitals Vitals: Last Vital Signs Temp 37.4 C 06/02/19 10:00 Pulse 80 06/02/19 10:00 Resp 20 06/02/19 10:00 BP 128/74 06/02/19 10:00 Pulse Ox 93 06/02/19 10:00 - Abnormal Lab Findings Abnormal Lab Findings: Abnormal Lab Results 06/01/19 06/01/19 06/01/19 Range/Units 15:10 15:10 15:10 RBC 3.54 L (4.2-5.4) M/mm3 Hgb 10.9 L (12.5-16.0) gm/dL Hct 33.5 L (37.0-47.0) % Immature Gran % (Auto) 0.80 H (0.001-0.429) % Immature Gran # (Auto) 0.08 H (0.000-0.0310) K/mm3 Lymphocytes % 14.1 L (20-51) % Monocytes % 10.1 H (0.0-9) % Neutrophils # 7.3 H (1.3-6.0) K/mm3 Lymphocytes # 1.40 L (1.5-3.5) k/mm3 ESR 51 H (0-15) mm/hr PTT ([place]) 22.5 L (24-32) Seconds Albumin (3.4-5.0) gm/dl 06/01/19 Range/Units 15:10 RBC (4.2-5.4) M/mm3 Hgb (12.5-16.0) gm/dL Hct (37.0-47.0) % Immature Gran % (Auto) (0.001-0.429) % Immature Gran # (Auto) (0.000-0.0310) K/mm3 Lymphocytes % (20-51) % Monocytes % (0.0-9) % Neutrophils # (1.3-6.0) K/mm3 Lymphocytes # (1.5-3.5) k/mm3 ESR (0-15) mm/hr PTT ([place]) (24-32) Seconds Albumin 3.0 L (3.4-5.0) gm/dl - Exam Constitutional: Present: No distress, Thin and frail Neck: Present: non-tender, supple Breasts: Present: Exam deferred Respiratory: Present: chest non-tender, lungs clear, normal breath sounds Cardiovascular/Chest: Present: systolic murmur, irregularly irregular Abdomen: Present: Normal bowel sounds, soft, nontender /Rectal: Present: Exam deferred Skin Exam: Present: normal color, warm/dry Neurologic: Present: facial droop - Right side, other - Patient speech is more clear but her answers are inappropriate to questions being asked, unable to follow commands Eye contact: Present: good eye contact Assessment/Plan Plan Narrative: Patient had no adverse events overnight, blood pressure still being allowed to be elevated though the highest of seen so far is 160/68. Patient still nonverbal and unable to communicate though she responds to some yes/no questions with okay or no. Patient currently denies any pain. Speech therapy evaluated patient today, patient passed thin liquid and pured liquid diet but refused any mechanical soft. The diet will be advanced to thin liquids and pured. Will resume some on meds including aspirin if she will take it but given her situation and circumstances this may be difficult to achieve. Will reevaluate tomorrow to see how she is doing to improve at all. The patient remains in this state will discuss comfort measures and possible hospice care with the family. Continue SCDs for DVT prophylaxis, the nurse will call with any questions or concerns. - Problems/Diagnosis (1) Acute CVA (cerebrovascular accident) Problem: Acute (2) Atrial fibrillation Problem: Acute Qualifiers: Atrial fibrillation type: persistent Qualified Code(s): I48.1 - Persistent atrial fibrillation (3) Hypertension Problem: Chronic Qualifiers: Hypertension type: essential hypertension Qualified Code(s): I10 - Essential (primary) hypertension
[2019-06-02] MEDS: ASPIRIN 81 MG TAB.CHEW PO SCH (20:05)
[2019-06-02] MEDS: SIMVASTATIN 40 MG TABLET PO SCH (20:05)
[2019-06-02] MEDS: OXYBUTYNIN CHLORIDE 5 MG TABLET PO SCH (20:05)
[2019-06-02] MEDS: FERROUS SULFATE 325 MG TABLET PO SCH (20:05)
[2019-06-03] MEDS: NORMAL SALINE 1,000 ML IV PRN ×2 (04:25→14:22)
[2019-06-03] MEDS: ASPIRIN 81 MG TAB.CHEW PO SCH (08:38)
[2019-06-03] MEDS: ACETAMINOPHEN 325 MG TABLET PO PRN (08:38)
[2019-06-03] MEDS: BISACODYL 5 MG TABLET.DR PO SCH (08:39)
[2019-06-03] MEDS: FERROUS SULFATE 325 MG TABLET PO SCH ×2 (08:39→21:29)
[2019-06-03] MEDS: POTASSIUM CHLORIDE 10 MEQ TABLET.SA PO SCH (08:39)
[2019-06-03] MEDS: FUROSEMIDE 20 MG TABLET PO SCH (08:39)
--- NOTE | 2019-06-03 17:53 | PN ---
Subjective - Date and Time Seen Date: 06/03/19 Time: 17:53 Subjective Narrative: Patient sitting up in a chair this morning, alert oriented x3 and comfortable, no acute events overnight. Big improvement from the 2 previous days. She is conversant, denies any pain though she still has difficulty with answering some more direct questions. Her vital signs are stable and she feels well. Objective Objective Narrative: Patient still confused and unable to answer any questions regarding her review of systems and physical exam though she is able to follow simple commands - Vitals Vitals: Last Vital Signs Temp 36.7 C 06/03/19 15:54 Pulse 77 06/03/19 15:54 Resp 18 06/03/19 15:54 BP 173/70 H 06/03/19 15:54 Pulse Ox 97 06/03/19 15:54 - Exam Constitutional: Present: Alert, Oriented x3, Elderly Neck: Present: non-tender, supple Respiratory: Present: lungs clear, normal breath sounds Cardiovascular/Chest: Present: systolic murmur, irregularly irregular Abdomen: Present: Normal bowel sounds, soft, nontender /Rectal: Present: Exam deferred Skin Exam: Present: normal color, warm/dry Neurologic: Present: facial droop - Slight on right, motor weakness - Trouble raising right arm and right leg but much improved from previous exam. Absent: sensory deficit - Patient unable to respond to sensation Eye contact: Present: cooperative, good eye contact. Absent: normal speech - Speech significantly improved though she still has some slurring of her words Assessment/Plan Plan Narrative: Overall patient has shown significant improvement from previous 2 days from her acute CVA. She is much more comfortable and conversant though she has trouble answering certain questions or following most commands. Simple commands able to follow as far as raise her arms, raise her legs, [id number] on her left with difficulty on her right. Will resume her blood pressure medications today after the 48-hour flakito as she is been given an appropriate amount of time for permissive hypertension. Speech came by again and advance her diet to mechanical soft ground meats. Patient likely is to go to a SNF upon approval in the next day or 2. We will discussed this again with the family when they are at bedside, currently not there in the room at this time. Rest of her medications restarted. Continue SCDs while in bed. Nurse will call with any questions or concerns. - Problems/Diagnosis (1) Acute CVA (cerebrovascular accident) Problem: Acute (2) Atrial fibrillation Problem: Acute Qualifiers: Atrial fibrillation type: persistent Qualified Code(s): I48.1 - Persistent atrial fibrillation (3) Hypertension Problem: Chronic Qualifiers: Hypertension type: essential hypertension Qualified Code(s): I10 - Essential (primary) hypertension
[2019-06-03] MEDS ORDERED: ENALAPRIL MALEATE 10 MG PO SCH (21:00)
[2019-06-03] MEDS: METOPROLOL TARTRATE 25 MG TABLET PO SCH (21:29)
[2019-06-03] MEDS: OXYBUTYNIN CHLORIDE 5 MG TABLET PO SCH (21:29)
[2019-06-03] MEDS: SIMVASTATIN 40 MG TABLET PO SCH (21:29)
[2019-06-03] MEDS: ENALAPRIL MALEATE 5 MG TABLET PO SCH (21:29)
[2019-06-04] MEDS: NORMAL SALINE 1,000 ML IV PRN ×2 (00:14→10:20)
[2019-06-04] MEDS: BISACODYL 5 MG TABLET.DR PO SCH (08:10)
[2019-06-04] MEDS: FUROSEMIDE 20 MG TABLET PO SCH (08:10)
[2019-06-04] MEDS: POTASSIUM CHLORIDE 10 MEQ TABLET.SA PO SCH (08:10)
[2019-06-04] MEDS: ASPIRIN 81 MG TAB.CHEW PO SCH (08:10)
[2019-06-04] MEDS: FERROUS SULFATE 325 MG TABLET PO SCH (08:10)
[2019-06-04] MEDS: ACETAMINOPHEN 325 MG TABLET PO PRN (08:10)
[2019-06-04] MEDS: ENALAPRIL MALEATE 5 MG TABLET PO SCH (08:14)
[2019-06-04] MEDS: METOPROLOL TARTRATE 25 MG TABLET PO SCH (08:14)
--- NOTE | 2019-06-04 13:48 | DS ---
(1) Acute CVA (cerebrovascular accident) Problem: Acute (2) Atrial fibrillation Problem: Acute Qualifiers: Atrial fibrillation type: persistent Qualified Code(s): I48.1 - Persistent atrial fibrillation (3) Hypertension Problem: Chronic Qualifiers: Hypertension type: essential hypertension Qualified Code(s): I10 - Essential (primary) hypertension Description of Stay: 88-year-old male history of new onset A. fib, hyperlipidemia presented to the ER 3 days prior with acute onset CVA with right-sided weakness and facial droop. She was not conversive the time and unable to follow commands. TPA was considered but due to recent fall history and multiple right-sided rib fractures patient was not a good candidate for this and so this was passed upon. Patient was not started on anticoagulation for her new onset A. fib which is likely what led to her right-sided CVA but this again was discussed with the family prior to her last discharge. Over the course of her hospitalization patient's cognition and motor and sensory skills gradually improved to the point where she was able to pass her swallow study and respond to questions. Patient is cognitive at this point alert and oriented x3 though more direct questions tend to be difficult for her to answer. She is able to follow simple commands and is pleasant. Patient will be discharged to a SNF facility for rehab as she still has difficulty with ADLs and will need regular diet with thin liquids. Patient will be sent home on aspirin and a statin, otherwise no changes to her medications. Oxycodone which was given for her fractures will be discontinued as she is already a fall risk and her pain is insignificant at this time. While here during the hospitalization her vital signs have been stable after a 48-hour of permissive hypertension. her lab work was all in an acceptable rangeof note she does have what looks to be a chronic anemia that she was at her baseline at 10.9 and 33.5. She will be discharged to a SNF in stable condition, advised to follow-up with her PCP within the next 7 days. Procedures Performed: none Results and Findings: Lab Pending Results 06/01/19 15:10: WBC 10.0, RBC 3.54 L, Hgb 10.9 L, Hct 33.5 L, MCV 94.6, MCH 30.8, MCHC 32.5, RDW 13.3, Plt Count 269, MPV 10.2, Immature Gran % (Auto) 0.80 H, Immature Gran # (Auto) 0.08 H, Neutrophils % 73.6, Lymphocytes % 14.1 L, Monocytes % 10.1 H, Eosinophils % 0.8, Basophils % 0.6, Nucleated RBC % 0.0, Neutrophils # 7.3 H, Lymphocytes # 1.40 L, Monocytes # 1.0, Eosinophils # 0.1, Absolute Basophils 0.1 06/01/19 15:10: ESR 51 H 06/01/19 15:10: PT 10.2, INR (Anticoag Therapy) 1.03, PTT ([place]) 22.5 L 06/01/19 15:10: Sodium 141, Plasma Sodium 141, Potassium 3.7, Chloride 104, Carbon Dioxide 28.4, Anion Gap 12.3, BUN 20, Creatinine 0.93, Est GFR (Non-Af Amer) 60, BUN/Creatinine Ratio 21.5, Random Glucose 96, Calcium 9.1, Calcium Adj for Albumin 9.6, Total Bilirubin 0.4, AST 25, ALT 42, Alkaline Phosphatase 77, Total Protein 6.3, Albumin 3.0 L Discharge Location: [facility] Disposition: SNF Condition: Stable Level of Care: SNF Discharge Activity: Activity as tolerated Discharge Diet: Low fat/chol, Other - thin liquids [facility] Therapy: Physicial Therapy, Occupation Therapy, Speech Therapy Referrals: Ana Hoskins MD [Primary Care Provider] - One Week Prescriptions (Any new or edited meds): Aspirin 325 mg PO DAILY #30 tab Complete Home Medications List: Complete Home Medication List: Multivitamins [Multivitamin Sukumar] 1 cap PO DAILY #90 cap 06/10/13 Bisacodyl [Dulcolax] 5 mg PO DAILY 01/11/16 Calcium Carbonate/Vitamin D3 [Calcium 500-Vit D3 200 Tablet] 1 ea PO DAILY 01/11/16 Ferrous Sulfate [Iron] 325 mg PO BID 01/11/16 Nitroglycerin 0.4 mg SL Q5M PRN 01/11/16 oxybutynin chloride 5 mg tablet 5 mg PO HS #30 tab 01/05/19 enalapril maleate 10 mg tablet 10 mg PO BID #60 tab 01/06/19 Acetaminophen [Tylenol] 650 mg PO Q4H PRN #60 tab 05/28/19 Nystatin [Mycostatin Powder] 1 appl TOPICAL BID #1 btl 05/28/19 Furosemide [Lasix] 20 mg PO DAILY #30 tab 05/29/19 Metoprolol Tartrate [Lopressor] 25 mg PO BID #60 tab 05/29/19 Potassium Chloride [Klor-Con 10] 10 meq PO DAILY #30 tab 05/29/19 Simvastatin [Zocor] 40 mg PO HS 06/01/19 Aspirin 325 mg PO DAILY #30 tab 06/04/19
[2019-06-04 14:33] VITALS: BP 113/78
== END 2019-06-04 14:30 | DRG 65 ==
LOC: ER 14:43 → MS 15:41
PROVIDERS: ADMIT Family Medicine; ATTEND Family Medicine
DX: R40.2423 Glasgow coma scale score 9-12, at hospital admission; Z66 Do not resuscitate; R53.1 Weakness; S22.42XD Multiple fractures of ribs, left side, subsequent encounter for fracture with routine healing; I63.9 Cerebral infarction, unspecified; R29.810 Facial weakness; I48.1 Persistent atrial fibrillation; I11.9 Hypertensive heart disease without heart failure; R41.841 Cognitive communication deficit; G81.91 Hemiplegia, unspecified affecting right dominant side
CPT/HCPCS: 36415; 70450; 71010; 71045; 80053; 85025; 85610; 85652; 85730; 87081; 92526; 92610; 93005; 97110; 97116; 97162; 97165; 97530; 99291